=== PATIENT | male | born 1980 | race Caucasian/White ===

== ENCOUNTER 2020-02-20 17:23 | Inpatient (IN) | payer BC ==
[~2020-02-20] VITALS: Ht 172.7 cm; Wt 100.4 kg
[2020-02-20] MEDS: SODIUM ZIRCONIUM CYCL 10 GM PAK PO SCH ×3 (06:00→22:00)
[2020-02-20] MEDS ORDERED: MIDAZOLAM DRIP 50 mg/50mL 50 ML IV ONE (17:36)
[2020-02-20] MEDS ORDERED: ETOMIDATE (2MG/ML) 20ML VIAL IV ONE ×3 (17:36→17:45)
[2020-02-20] MEDS ORDERED: SUCCINYLCHOLINE CHLORIDE 20 MG/ML 10ML VIAL IV ONE ×3 (17:37→17:45)
[2020-02-20] MEDS ORDERED: MIDAZOLAM DRIP 50 mg/50mL 50 ML IV SCH ×2 (17:39)
[2020-02-20] MEDS ORDERED: PROPOFOL 100 ML IV ONE (17:44)
[2020-02-20 17:48] LABS: Hematocrit 50.8 % (41.0-53.0); Hemoglobin 17.4 g/dL (13.5-17.5); Mean Corpuscular Hemoglobin 31.4 pg (28.0-32.0); Mean Corpuscular Hgb Conc. 34.3 g/dL (32.0-36.0); Mean Corpuscular Volume 91.5 fL (80.0-100.0); Platelet Count (auto) 338 10^3/uL (140-450); Red Blood Cells 5.56 10^6/uL (4.5-5.90); Red Cell Distribution Width 13.8 % (11.8-14.3); White Blood Cell 20.3 10^3/uL (4.4-10.8)
[2020-02-20] MEDS: PROPOFOL 100 ML IV SCH (17:50)
[2020-02-20] MEDS ORDERED: PROPOFOL 100 ML IV SCH (17:50)
[2020-02-20 17:55] LABS: Basophils % (manual) 0 (0.0-2.0); Blast Cells 0; Eosinophils % (manual) 0 (0-7); Metamyelocytes % 0; Myelocytes % 0; Promyelocytes % 0; Reactive Lymphocytes 0
[2020-02-20] MEDS ORDERED: DEXTROSE 50% SYRINGE 50 ML IV ONE (17:56)
[2020-02-20] MEDS ORDERED: NOREPINEPHRINE 8 MG/250ML KIT 250 ML IV ONE (17:57)
[2020-02-20] MEDS: NOREPINEPHRINE 8 MG/250ML KIT 250 ML IV SCH (18:00)
[2020-02-20] MEDS ORDERED: DEXTROSE (50%) 50ML SYRG IV ONE (18:00)
[2020-02-20] MEDS ORDERED: NOREPINEPHRINE 8 MG/250ML KIT 250 ML IV SCH (18:00)
[2020-02-20 18:06] LABS: Albumin 3.8 g/dL (3.4-5.0); Anion Gap 19 (5-15); BUN/Creatinine Ratio 9.2; Blood Alcohol < 3.0 mg/dL (0-5); Blood Urea Nitrogen 30 mg/dL (7-18); Calcium 7.4 mg/dL (8.5-10.1); Carbon Dioxide 17 mmol/L (21-32); Chloride 98 mmol/L (98-107); GFR African American 27 mL/min; GFR Non-African American 23 mL/min; Glucose 65 mg/dL (74-106); Sodium 134 mmol/L (136-145)
[2020-02-20 18:08] LABS: Acetaminophen < 2.0 ug/mL (10-30); Salicylate < 1.7 mg/dL (2.8-20.0)
[2020-02-20 18:09] LABS: Alanine Aminotransferase 138 U/L (16-61); Alkaline Phosphatase 88 U/L (45-117); Aspartate Aminotransferase 581 U/L (15-37); Bilirubin, Total 0.5 mg/dL (0.2-1.0); Total Protein 7.9 g/dL (6.4-8.2)
[2020-02-20 18:10] LABS: Band Neutrophils % (manual) 3; Lymphocytes % (manual) 3 (10.0-50.0); Monocytes % (manual) 6 (0-12)
[2020-02-20 18:12] LABS: Potassium 6.9 mmol/L (3.5-5.1)
[2020-02-20] MEDS ORDERED: CALCIUM GLUC 4.65meq/50ml D5AE 50 ML IV ONE (18:15)
[2020-02-20] MEDS ORDERED: SODIUM BICARBONATE 8.4 % INJ 50ML VIAL IV ONE ×2 (18:15→19:45)
[2020-02-20 19:23] LABS: Alcohol, Urine < 3.0 mg/dL (0-5); Amphetamine Screen, Urine POSITIVE (NEGATIVE); Barbiturate Scree,Urine NEGATIVE (NEGATIVE); Benzodiazephine Screen, Urine NEGATIVE (NEGATIVE); Cannabinoid Screen, Urine POSITIVE (NEGATIVE); Cocaine Screen, Urine NEGATIVE (NEGATIVE); Opiate Scree,Urine NEGATIVE (NEGATIVE); Phencyclidine Screen, Urine NEGATIVE (NEGATIVE)
[2020-02-20 19:25] LABS: Urine Bacteria NONE SEEN /hpf (None Seen); Urine Blood 3+ /uL (Negative); Urine Hyaline Cast MOD /lpf (0 - 2); Urine Mucus FEW (None Seen); Urine Specific Gravity 1.019 (1.001-1.035); Urine WBC 5 /hpf (0 - 3)
[2020-02-20] MEDS ORDERED: ACETAMINOPHEN 500 MG TAB PO PRN (19:45)
[2020-02-20] MEDS ORDERED: ALBUTEROL SULF 2.5 MG/0.5ML(0.5%) NEB SOLN NEB ONE ×2 (19:45→21:15)
[2020-02-20 20:24] LABS: CRP High Sensitivity 3.47 mg/dL (< 0.3)
[2020-02-20] MEDS ORDERED: acetaZOLAMIDE SODIUM 500 MG VL IV ONE (20:30)
[2020-02-20] MEDS ORDERED: FUROSEMIDE 40 MG/4 ML VIAL IV ONE (20:30)
[2020-02-20] MEDS ORDERED: CALCIUM CHL 100MG/ML 500 MG in D5W 5% 100 ML IV ONE (20:30)
[2020-02-20] MEDS ORDERED: SODIUM ZIRCONIUM CYCL 10 GM PAK PO ONE (20:30)
[2020-02-20] MEDS ORDERED: MORPHINE SULF INJ 2 MG/ML SYRINGE 1ML IV PRN (20:45)
[2020-02-20] MEDS ORDERED: LORazepam 0.5 MG TAB PO PRN (20:45)
[2020-02-20] MEDS ORDERED: VANCOMYCIN 1GM/250ML 250 ML IV ONE (20:45)
[2020-02-20] MEDS ORDERED: NITROGLYCERIN 0.4 MG SL TAB SL PRN (20:45)
[2020-02-20] MEDS ORDERED: HYDROCORTISONE SOD SUCC 100 MG/2ML INJ VIAL IV ONE (20:45)
[2020-02-20] MEDS ORDERED: HYDROCORTISONE SOD SUCC 100 MG/2ML INJ VIAL ONE (20:54)
[2020-02-20] MEDS ORDERED: DEXTROSE (50%) 50ML SYRG IV PRN (21:15)
[2020-02-20] MEDS ORDERED: IPRATROPIUM BROM 0.5 MG/2.5ML INH SOL NEB ONE (21:15)
[2020-02-20 21:30] VITALS: BP 101/63
[2020-02-20] MEDS ORDERED: PIPERACILLIN-TAZOB 2.25GM 50 ML IV ONE (22:00)
[2020-02-20] MEDS: SODIUM BICARBONATE 50ML VIAL 150 ML in D5W 5% 1,000 ML IV SCH (22:06)
[2020-02-20] MEDS: MIDAZOLAM DRIP 50 mg/50mL 50 ML IV SCH (22:13)
[2020-02-20] MEDS ORDERED: acetaZOLAMIDE 250 MG TAB PO ONE (22:30)
[2020-02-20 23:15] VITALS: BP 114/77
[2020-02-20] MEDS: fentaNYL Drip 2500mCg/250mlNS 250 ML IV SCH (23:15)
--- NOTE | 2020-02-20 23:15 | NUR ---
Admit to ICU from ER on vent MIKAYLA BORJA admitted to ICU via gurney on quality assurance monitor body, intubated and being bagged by Respiratory Therapist. Patient transfered to bed, connected to mechanical ventilator by therapist. Patient connected to ICU monitoring, weighed by sheng, connected to ventilator. Skin assessment done at this time. Right antecubital, right forearm, and left antecubital IV's - clean/dry/intact. Nayak hung to gravity. Repositioned for comfort. Sedation: Versed - 8mg/hr Vasopressor: Levophed - 24mcg/min Bed in lowest position, side rails up x2. Will continue to monitor. Addendum: 02/21/20 at 728 by JOSELIN CADENA RN RN SKIN ASSESSED - PICTURES TAKEN Addendum: 02/21/20 at 728 by JOSELIN CADENA RN RN PM CARE PERFORMED WITH CHG WIPES.
[2020-02-20 23:25] LABS: Albumin 3.2 g/dL (3.4-5.0); BUN/Creatinine Ratio 9.7; Calcium 7.1 mg/dL (8.5-10.1)
[2020-02-20 23:28] LABS: Bilirubin, Total 0.5 mg/dL (0.2-1.0); Total Protein 6.8 g/dL (6.4-8.2)
[2020-02-20 23:30] VITALS: BP 112/68
[2020-02-20 23:31] LABS: Potassium 5.7 mmol/L (3.5-5.1)
[2020-02-20 23:45] VITALS: BP 111/76
[2020-02-21] VITALS (102 sets, daily range): BP systolic 114–149; BP diastolic 74–100
[2020-02-21] MEDS ORDERED: InsuLIN REG 1unit/0.01ml Soln (100units/ml) IV ONE
[2020-02-21] MEDS ORDERED: DEXTROSE (50%) 50ML SYRG IV ONE
[2020-02-21] MEDS ORDERED: SODIUM ZIRCONIUM CYCL 10 GM PAK PO ONE
[2020-02-21] MEDS ORDERED: CALCIUM GLUC 4.65meq/50ml D5AE 50 ML IV ONE
[2020-02-21] MEDS ORDERED: SODIUM ZIRCONIUM CYCL 10 GM PAK ONE (00:09)
[2020-02-21] MEDS: MIDAZOLAM DRIP 50 mg/50mL 50 ML IV SCH ×3 (01:10→22:55)
[2020-02-21] MEDS: InsuLIN REG 1unit/0.01ml Soln (100units/ml) SC SCH ×4 (01:16→19:00)
[2020-02-21] MEDS ORDERED: IPRATROPIUM BROM 0.5 MG/2.5ML INH SOL NEB SCH (02:00)
[2020-02-21 04:15] LABS: Basophils # (auto) 0 10 ^3/uL (0-0.2); Basophils % (auto) 0.1 % (0.0-2.0); Eosinophils # (auto) 0 10 ^3/uL (0-0.8); Hematocrit 49.9 % (41.0-53.0); Hemoglobin 17.3 g/dL (13.5-17.5); Lymphocytes # (auto) 0.7 10 ^3/uL (0.4-5.4); Lymphocytes % (auto) 3.6 % (10.0-50.0); Mean Corpuscular Hemoglobin 31.8 pg (28.0-32.0); Mean Corpuscular Hgb Conc. 34.7 g/dL (32.0-36.0); Mean Corpuscular Volume 91.8 fL (80.0-100.0); Monocytes # (auto) 1.9 10 ^3/uL (0-1.3); Monocytes % (auto) 9.3 % (0.0-12.0); Neutrophils # (auto) 17.7 10 ^3/uL (1.6-8.6); Platelet Count (auto) 322 10^3/uL (140-450); Red Blood Cells 5.44 10^6/uL (4.5-5.90); Red Cell Distribution Width 13.8 % (11.8-14.3); White Blood Cell 20.4 10^3/uL (4.4-10.8)
[2020-02-21 04:30] LABS: Potassium 4.6 mmol/L (3.5-5.1)
[2020-02-21 04:47] LABS: BUN/Creatinine Ratio 10.8; Bilirubin, Total 0.5 mg/dL (0.2-1.0); Calcium 7.3 mg/dL (8.5-10.1); Total Protein 6.8 g/dL (6.4-8.2)
[2020-02-21] MEDS: HYDROCORTISONE SOD SUCC 100 MG/2ML INJ VIAL IV SCH ×2 (05:26→09:30)
[2020-02-21] MEDS: SODIUM ZIRCONIUM CYCL 10 GM PAK PO SCH ×3 (06:18→21:38)
[2020-02-21] MEDS: SODIUM BICARBONATE 50ML VIAL 150 ML in D5W 5% 1,000 ML IV SCH (06:18)
[2020-02-21] MEDS: ACCU-CHEK COMFORT CURVE STRIP VI SCH ×4 (06:18→19:00)
--- NOTE | 2020-02-21 06:30 | NUR ---
SPOKE WITH ZACKERY ( MOTHER ) UPDATED HER ON PATIENT STATUS.
--- NOTE | 2020-02-21 07:28 | NUR ---
END OF SHIFT REPORT GIVEN TO DAY SHIFT RN. CARE ENDORSED.
[2020-02-21] MEDS: DOCUSATE SOD 100 MG CAP PO SCH (08:14)
[2020-02-21] MEDS: PANTOPRAZOLE 40 MG/10 ML VIAL INJ IV SCH (09:30)
[2020-02-21] MEDS: ASCORBIC ACID 1,000 MG TAB PO SCH (09:30)
[2020-02-21] MEDS: ASPirin 81 mg TAB PO SCH (09:30)
--- NOTE | 2020-02-21 09:40 | NUR ---
OPEN: AM ASSESSMENT/ STATUS RECEIVED REPORT FROM NIGHT RN. ASSUMED CARE OF ICU PATIENT, FULL CODE STATUS. PATIENT R/O COVID-19 ISOLATION AT THIS TIME. PATIENT IN ROOM 105 OF THE ICU. SEE NURSING TECHNICIAN, IV FLOW SHEET AND V.S FLOW SHEET FOR FURTHER PATIENT INFORMATION SEE CHART FOR ORDERS GIVEN THROUGHOUT THE DAY. WILL CONTINUE TO MONITOR. CLUSTER CARE PREFORMED WHILE R/O PATIENT FROM COVID-19. CONTINUE CARE.
[2020-02-21] MEDS ORDERED: ENOXAPARIN SOD 40 MG/0.4 ML SYRINGE SC SCH (10:00)
[2020-02-21] MEDS ORDERED: CHOLECALCIFEROL (VITD3) 1,000IU=25mCg TAB PO SCH (10:00)
[2020-02-21] MEDS ORDERED: ZINC SULFATE 220mg CAP or TAB PO SCH (10:00)
[2020-02-21] MEDS ORDERED: AZITHROMYCIN 500MG/D5WorNS 250ml IV SCH (10:00)
--- NOTE | 2020-02-21 11:05 | NUR ---
DR. HUERTAS AT BEDSIDE MD UPDATED ON PT'S STATUS, LABS, HEMODYNAMICS AND CURRENT GTT'S. MD DECREASED PEEP TO + 5. OTHER ORDERS GIVEN AND TO BE CARRIED OUT. SEE CHART. CONTINUE CARE.
[2020-02-21] MEDS ORDERED: VANCOMYCIN PER PHARMACY 0 MG IV SCH (11:15)
[2020-02-21] MEDS ORDERED: SOD CHL 0.45% 1,000 ML IV SCH (11:15)
[2020-02-21] MEDS ORDERED: SODIUM CHLORIDE 0.9% 1,000 ML IV SCH (11:30)
--- NOTE | 2020-02-21 11:30 | NUR ---
DR. GORDON AT BEDSIDE: CONSULT ORDERS GIVEN AND TO BE CARRIED OUT. SEE MD NOTES. CONTINUE CARE.
--- NOTE | 2020-02-21 12:00 | NUR ---
DR. Lisseth BANUELOS AT BEDSIDE: ORDERS MD UPDATED ON PT'S CURRENT STATUS, LABS, HEMODYNAMICS AND CURRENT GTT'S. ORDERS GIVEN AND TO BE CARRIED OUT. CONTINUE CARE.
[2020-02-21 13:34] LABS: Albumin 2.7 g/dL (3.4-5.0); Bilirubin, Direct 0.2 mg/dL (0-0.2)
[2020-02-21] MEDS: SODIUM CHLORIDE 0.9% 1,000 ML IV SCH ×2 (13:45→21:37)
[2020-02-21 14:01] LABS: Bilirubin, Total 0.5 mg/dL (0.2-1.0); Total Protein 6.6 g/dL (6.4-8.2)
[2020-02-21] MEDS: PIPERACILLIN-TAZOB 2.25GM 50 ML IV SCH ×2 (14:31→21:38)
[2020-02-21] MEDS: NOREPINEPHRINE 8 MG/250ML KIT 250 ML IV SCH (16:27)
[2020-02-21] MEDS: PROPOFOL 100 ML IV SCH (16:28)
--- NOTE | 2020-02-21 16:30 | NUR ---
WOUND CARE NOTE: IN TO SEE PATIENT AT THIS TIME PER WOUND CARE CONSULT REQUEST. PATIENT WAS NOTED TO HAVE MULTIPLE SKIN INTEGRITY ISSUES NOTED UPON ADMIT, WOUND PHOTOS DONE AT THAT TIME FOR REFERENCE. PATIENT ADMITTED TO [facility] WITH DIAGNOSIS OF ACUTE HYPOXIC RESPIRATORY FAILURE. CURRENT LISA SCORE IS 12. PATIENT IS INTUBATED, SEDATED. SKIN/WOUND CARE PLAN PLACED. SPECIALTY AIR BED ORDERED AT THIS TIME. PATIENT TO BE PLACED, PENDING DELIVERY BY GENARO PACHECO. PATIENT IS NOTED TO HAVE MULTIPLE ECCHYMOTIC AREAS TO A VARIETY OF AREAS. PER BEDSIDE NURSE AND MOTHER AT BEDSIDE, PATIENT WAS FOUND DOWN ON FLOOR FOR UNKNOWN PERIOD OF TIME. PATIENT NOTED TO HAVE WHAT APPEARS TO BE EARLY DTI'S TO RIGHT TEMPORAL HEAD, RIGHT SHOULDER, RIGHT CHEST, RIGHT FOREARM, R WRIST, R HIP, RIGHT LATERAL KNEE, LEFT MEDIAL THIGH, LEFT MEDIAL ANKLE, LEFT MEDIAL FOREFOOT, LEFT MEDIAL FOOT, ECCHYMOSIS TO RIGHT DORSAL FOOT, ECCHYMOSIS AND EDEMA TO RIGHT HAND. ALL WOUNDS REPHOTOGRAPHED AT THIS TIME FOR REFERENCE. ALL ECCHYMOTIC AREAS MEASURED FOR REFERENCE. THERE IS ONE VERY SMALL 0.5 X 0.5 CM OPEN BLISTER OVER DTI TO THE LEFT MEDIAL THIGH. OPTIFOAM GENTLE DRESSING APPLIED TO COVER AND PROTECT. PATIENT REPOSITIONED ONTO LEFT SIDE, REDISTRIBUTING PRESSURE POINTS USING PILLOWS/WEDGES. RECOMMEND: SPECIALTY AIR BED, FREQUENT TURN SCHEDULE Q 2 HOURS, PRN CONDITION PERMITS, WITH PRESSURE REDISTRIBUTION USING PILLOWS/WEDGES, BID/PRN APPLICATION WITH MOISTURE BARRIER CREAM TO OPTIFOAM GENTLE SACRAL DRESSING PREVENTATIVE, NO MASSAGE OF PURPLE/DARK RED SKIN AREAS, SKIN/WOUND CARE PLAN, DIETARY CONSULT, CONTINUED MONITORING BY WOUND CARE TEAM. Addendum: 02/21/20 at 1846 by Heather Yu RN Amended: Links added.
--- NOTE | 2020-02-21 16:45 | NUR ---
FAMILY AT BEDSIDE MOTHER AT BEDSIDE, UPDATED ON PT'S CURRENT STATUS, WOUND CARE AT BEDSIDE WITH MY HELP, PICTURES BEING TAKEN. CONTINUE CARE.
--- NOTE | 2020-02-21 18:12 | NUR ---
RT NOTE RECEIVED PT INTUBATED AND ON VENT ADQ-0236 ON STATED SETTINGS ON HEATED WIRE CIRCUIT. VENT IS PLUGGED TO RED OUTLET. ALARMS ARE ON AND AUDIBLE AT NURSES STATION. AMBU BAG AT BEDSIDE AND CONNECTED TO O2 SOURCE. 7.5 ETT IS SECURED WITH ANCHORFAST AT 24 CM AT THE ORAL RIGHT. WATER LEVEL IN ARMIDA IS ADEQUATE. BILATERAL BS ARE CTA. PT WAS SUCTIONED FOR SMALL SCANT CLEAR RETURN FROM ETT AND SMALL WHITE RETURN ORALLY. CONT ORDERED. etCO2 38, PT TEMP 99.3, CIRCUIT TEMP 35.1, POX 100% Addendum: 02/21/20 at 1850 by Gisselle Bonilla RT Amended: Links added.
--- NOTE | 2020-02-21 18:30 | NUR ---
RT NOTE PT WAS TRANSFERRED FROM ICU 105 TO ICU 107 WITHOUT INCIDENT WITH RUDY HELTON AND RUDY REES. PT IS PLACED BACK ON VENT WITH PREVIOUS SETTINGS. CONT ORDERED Addendum: 02/21/20 at 1850 by Gisselle Bonilla RT Amended: Links added.
--- NOTE | 2020-02-21 19:10 | NUR ---
OPENING NOTE RECEIVED REPORT FROM DAY SHIFT RN. PATIENT INTUBATED AND SEDATED ON FENT AND VERSED TOLERATING VENTILATOR. STATING >955 ON BEDSIDE MONITOR. SR-ST 95-105 WITH BP OF 141/100 ON NO PRESSURE SUPPORT. TEMP 99.5 RECTAL PROBE, FAN IN ROOM FOR COOLING MEASURES. RIGHT NGT PATENT AND CLAMPED. RIGHT ARM EDEMA +3 NON PITTING, ELEVATED. MULTIPLE SKIN ISSUES. FOR MORE INFORMATION SEE INTEVENTIONS. FOR GTTS AND THEIR TITRATIONS SEE IV SPREAD SHEET. ALL MARY PROMINENCES OFFLOADED WITH PILLOWS. BED LOCKED AND IN LOWEST POSITION. UNIVERSAL PRECAUTIONS, NEGATIVE FOR COVID-19.
[2020-02-21] MEDS: fentaNYL Drip 2500mCg/250mlNS 250 ML IV SCH (19:45)
--- NOTE | 2020-02-21 20:41 | NUR ---
RT NOTE ROUTINE VENT CHECK DONE. PT INTUBATED AND ON VENT ADQ-0236 ON STATED SETTINGS ON HEATED WIRE CIRCUIT. VENT IS PLUGGED TO RED OUTLET. ALARMS ARE ON AND AUDIBLE AT NURSES STATION. AMBU BAG AT BEDSIDE AND CONNECTED TO O2 SOURCE. 7.5 ETT IS SECURED WITH ANCHORFAST AT 24 CM AT THE ORAL RIGHT. WATER LEVEL IN ARMIDA IS ADEQUATE. BILATERAL BS ARE CTA. PT WAS SUCTIONED FOR SMALL SCANT CLEAR RETURN FROM ETT AND SMALL WHITE RETURN ORALLY. CONT ORDERED.etCO2 36, PT TEMP 99.7, CIRCUIT TEMP 35.0, POX 99% Addendum: 02/21/20 at 2158 by Gisselle Bonilla RT Amended: Links added.
--- NOTE | 2020-02-21 22:30 | NUR ---
RT NOTE ROUTINE VENT CHECK DONE. PT INTUBATED AND ON VENT ADQ-0236 ON STATED SETTINGS ON HEATED WIRE CIRCUIT. VENT IS PLUGGED TO RED OUTLET. ALARMS ARE ON AND AUDIBLE AT NURSES STATION. AMBU BAG AT BEDSIDE AND CONNECTED TO O2 SOURCE. 7.5 ETT IS SECURED WITH ANCHORFAST AT 24 CM AT THE ORAL RIGHT. WATER LEVEL IN ARMIDA IS ADEQUATE. CONT ORDERED.etCO2 37, PT TEMP 99.5, CIRCUIT TEMP 35.0, POX 100% Addendum: 02/21/20 at 2256 by Gisselle Bonilla RT Amended: Links added.
[2020-02-21] MEDS: LINEZOLID 600MG/300ML 300 ML IV SCH (22:40)
[2020-02-22] VITALS (100 sets, daily range): BP systolic 108–159; BP diastolic 55–98
[2020-02-22] MEDS: ACCU-CHEK COMFORT CURVE STRIP VI SCH ×4 (00:08→17:21)
--- NOTE | 2020-02-22 00:19 | NUR ---
RT NOTE ROUTINE VENT CHECK DONE. PT INTUBATED AND ON VENT ADQ-0236 ON STATED SETTINGS ON HEATED WIRE CIRCUIT. VENT IS PLUGGED TO RED OUTLET. ALARMS ARE ON AND AUDIBLE AT NURSES STATION. AMBU BAG AT BEDSIDE AND CONNECTED TO O2 SOURCE. 7.5 ETT IS SECURED WITH ANCHORFAST AT 24 CM AT THE ORAL RIGHT. WATER LEVEL IN ARMIDA IS ADEQUATE. CONT ORDERED.etCO2 36, PT TEMP 99.7, CIRCUIT TEMP 34.9, POX 99% Addendum: 02/22/20 at 0138 by Gisselle Bonilla RT Amended: Links added.
--- NOTE | 2020-02-22 02:20 | NUR ---
RT NOTE ROUTINE VENT CHECK DONE. PT INTUBATED AND ON VENT ADQ-0236 ON STATED SETTINGS ON HEATED WIRE CIRCUIT. VENT IS PLUGGED TO RED OUTLET. ALARMS ARE ON AND AUDIBLE AT NURSES STATION. AMBU BAG AT BEDSIDE AND CONNECTED TO O2 SOURCE. 7.5 ETT IS SECURED WITH ANCHORFAST AT 24 CM AT THE ORAL RIGHT. WATER LEVEL IN ARMIDA IS ADEQUATE. CONT ORDERED.etCO2 35, PT TEMP 99.5, CIRCUIT TEMP 35.2, POX 99% Addendum: 02/22/20 at 0244 by Gisselle Bonilla RT Amended: Links added.
--- NOTE | 2020-02-22 03:00 | NUR ---
PATIENT PLACED ON SPECIALTY BED PLACED PATIENT ON [facility] SPECIALTY AIR MATTRESS BED. PATIENT TOLERATED WELL. NO SIGNS OF DISTRESS
[2020-02-22 03:56] LABS: Basophils # (auto) 0 10 ^3/uL (0-0.2); Basophils % (auto) 0.2 % (0.0-2.0); Eosinophils # (auto) 0 10 ^3/uL (0-0.8); Eosinophils % (auto) 0.3 % (0.0-7.0); Hematocrit 43.9 % (41.0-53.0); Hemoglobin 15.2 g/dL (13.5-17.5); Lymphocytes # (auto) 1.7 10 ^3/uL (0.4-5.4); Lymphocytes % (auto) 11.4 % (10.0-50.0); Mean Corpuscular Hemoglobin 31.8 pg (28.0-32.0); Mean Corpuscular Hgb Conc. 34.6 g/dL (32.0-36.0); Mean Corpuscular Volume 91.9 fL (80.0-100.0); Monocytes # (auto) 1.6 10 ^3/uL (0-1.3); Monocytes % (auto) 10.3 % (0.0-12.0); Neutrophils # (auto) 11.8 10 ^3/uL (1.6-8.6); Neutrophils % (auto) 77.8 % (37.0-80.0); Nucleated Red Blood Cells % 0.1 %; Platelet Count (auto) 216 10^3/uL (140-450); Red Blood Cells 4.78 10^6/uL (4.5-5.90); Red Cell Distribution Width 14.1 % (11.8-14.3); White Blood Cell 15.2 10^3/uL (4.4-10.8)
--- NOTE | 2020-02-22 04:00 | NUR ---
COMPLETE BED BATH GIVEN SKIN REASSESSED AND NO NEW BREAK DOWN NOTED. PATIENT TOLERATED WELL. SOAP AND WATER USED TO CLEAN PATIENT
--- NOTE | 2020-02-22 04:06 | NUR ---
RT NOTE ROUTINE VENT CHECK DONE. PT INTUBATED AND ON VENT ADQ-0236 ON STATED SETTINGS ON HEATED WIRE CIRCUIT. VENT IS PLUGGED TO RED OUTLET. ALARMS ARE ON AND AUDIBLE AT NURSES STATION. AMBU BAG AT BEDSIDE AND CONNECTED TO O2 SOURCE. 7.5 ETT IS SECURED WITH ANCHORFAST AT 24 CM AT THE ORAL LEFT. WATER LEVEL IN ARMIDA IS ADEQUATE. CONT ORDERED.etCO2 33, PT TEMP 99.1, CIRCUIT TEMP 34.8, POX 99% Addendum: 02/22/20 at 0452 by Gisselle Bonilla RT Amended: Links added.
[2020-02-22 04:18] LABS: Albumin 2.2 g/dL (3.4-5.0); Calcium 6.9 mg/dL (8.5-10.1); Potassium 4.5 mmol/L (3.5-5.1)
[2020-02-22 04:21] LABS: Bilirubin, Total 0.5 mg/dL (0.2-1.0); Total Protein 5.6 g/dL (6.4-8.2)
[2020-02-22] MEDS: SODIUM CHLORIDE 0.9% 1,000 ML IV SCH ×2 (05:35→23:15)
[2020-02-22] MEDS: PIPERACILLIN-TAZOB 2.25GM 50 ML IV SCH ×3 (06:00→22:09)
[2020-02-22] MEDS: InsuLIN REG 1unit/0.01ml Soln (100units/ml) SC SCH ×4 (06:00→17:21)
[2020-02-22] MEDS: MIDAZOLAM DRIP 50 mg/50mL 50 ML IV SCH ×3 (06:45→15:28)
--- NOTE | 2020-02-22 07:57 | NUR ---
DR GREEN AT BEDSIDE TO ASSESS PATIENT AND DISCUSS PLAN OF CARE.
--- NOTE | 2020-02-22 08:50 | NUR ---
IV insertion IV access obtained, via clean sterile technique by inserting 20gauge catheter at left hand after 2 attempts. IV secured properly. No trauma to site. Patient tolerated well. IV removal IV DC'd to right AC and FA with clean sterile technique, catheter fully intact. Pressure dressing applied to site. Patient tolerated well.
--- NOTE | 2020-02-22 08:50 | NUR ---
PATIENT TRANSPORTED TO RADIOLOGY VIA BED CONNECTED TO PORTABLE MONITOR AND VENTILATOR. RESPIRATORY THERAPIST AND RADIOLOGY NURSE PRESENT FOR TRANSPORT. VITAL SIGNS STABLE. WILL CONTINUE TO MONITOR.
--- NOTE | 2020-02-22 08:50 | NUR ---
RT Transport Note: Patient transported to HEAD CT with RN DAPHNE CHEEK. Patient transported to and from procedure on ventilator with previous ordered settings. Patient on threat monitoring analyst with alarms set and audible, ambu-bag/mask connected to 02 tank. Patient returned to room with no adverse reaction noted. Transport completed without incident.
[2020-02-22 09:02] LABS: Hepatitis B Surface Antibody Negative
--- NOTE | 2020-02-22 09:15 | NUR ---
PATIENT BACK FROM CT VIA BED CONNECTED TO BEDSIDE MONITOR AND VENTILATOR. VITAL SIGNS STABLE. WILL CONTINUE TO MONITOR.
[2020-02-22] MEDS: PANTOPRAZOLE 40 MG/10 ML VIAL INJ IV SCH (09:29)
[2020-02-22] MEDS: ASPirin 81 mg TAB PO SCH (09:29)
[2020-02-22] MEDS: ASCORBIC ACID 1,000 MG TAB PO SCH (09:30)
[2020-02-22] MEDS: LINEZOLID 600MG/300ML 300 ML IV SCH ×2 (09:30→22:09)
[2020-02-22] MEDS: DOCUSATE SOD 100 MG CAP PO SCH (09:30)
[2020-02-22 09:41] LABS: Hepatitis A Total Antibody Negative
[2020-02-22 09:56] LABS: Hepatitis A Ab IgM Negative; Hepatitis B Core Total AB Negative
[2020-02-22 09:57] LABS: Hepatitis B Core IgM Negative; Hepatitis B Surface Antigen Negative (Negative); Hepatitis C Antibody Negative (Negative)
[2020-02-22] MEDS ORDERED: ENOXAPARIN SOD 30 MG/0.3 ML SYRINGE SC SCH (10:00)
--- NOTE | 2020-02-22 12:04 | NUR ---
Midline Placement: Patient educated on need for midline placement. All risks and benefits explained and all questions and concerns addresses prior to procedure. 18g/10cm midline inserted via LEFT CEPHALIC vein using Ultrasound. Sterile technique utilized. Blood return obtained from lumen and flushed easily with NS using proper technique. Midline secured with saline lock; biodisc and occlusive dressing applied. Primary RN notified. Midline lot # [id number].
--- NOTE | 2020-02-22 12:20 | NUR ---
Nutrition Assessment Notes Please refer to link for full assessment notes. Est energy needs: 4004-1053 kcals (17-20 kcal/kgBW) Est protein needs: 60-75 gms/day (0.6-0.75 gm/kgBW) d/t elev RFTs, low GFR Will continue to monitor and reassess prn. Addendum: 02/22/20 at [address] Amended: Links added.
[2020-02-22] MEDS ORDERED: BUMETANIDE 2.5mg/10ml (0.25 mg/ml) INJ IV ONE (13:00)
[2020-02-22] MEDS ORDERED: BUMETANIDE INJECTION 20 ML ONE (13:03)
[2020-02-22] MEDS: fentaNYL Drip 2500mCg/250mlNS 250 ML IV SCH (13:04)
--- NOTE | 2020-02-22 13:28 | NUR ---
DR GORDON AT BEDSIDE TO ASSESS PATIENT AND DISCUSS PLAN OF CARE. ALL ORDERS NOTED IN CHART.
[2020-02-22] MEDS ORDERED: SODIUM CHLORIDE 0.9% 1,000 ML IV SCH ×2 (14:00→17:45)
--- NOTE | 2020-02-22 15:21 | NUR ---
DEWEY ANDINO EXECUTIVE RECRUITER AT BEDSIDE TO ASSESS PATIENT AND DISCUSS PLAN OF CARE. MADE AWARE OF TROPONIN LEVEL WELL ECHO READING. WILL REVIEW AND DISCUSS WITH DR GALLO ON PLAN OF CARE.
[2020-02-22 17:28] LABS: Magnesium 2.4 mg/dL (1.6-2.6)
--- NOTE | 2020-02-22 17:30 | NUR ---
SPOKE TO DEWEY CH TO CLARIFY ORDERS. PER ELECTRICAL PROSPECTING OBSERVER WANTS PATIENT ON HEPARIN DRIP PER [facility] PROTOCOL. PER DEWEY WILL CALL TOMORROW PRIOR TO DERIC TO STOP FOR PROCEDURE, ALSO MAY REPLACE ORDER FOR FLUIDS PREVIOUSLY ORDERED.
--- NOTE | 2020-02-22 17:40 | NUR ---
TELEPHONE CONSENT OBTAINED FROM MOTHER ZACKERY BORJA FOR DERIC WITH DOUBLE NURSE CONSENT.
[2020-02-22] MEDS: FUROSEMIDE 100 MG/10ML VIAL IV SCH (17:46)
[2020-02-22] MEDS ORDERED: HEPARIN SODIUM (PORCINE) 5000 UNITS/ML 1ML VIAL IV ONE (17:59)
[2020-02-22] MEDS: PROPOFOL 100 ML IV SCH (18:03)
[2020-02-22 19:01] LABS: INR 0.99 (0.9-1.15); Partial Thromboplastin Time 26.2 sec (23.64-32.05)
[2020-02-22] MEDS: HEPARIN DRIP/D5W 100UNITS/ML 250 ML IV SCH (21:19)
--- NOTE | 2020-02-22 21:30 | NUR ---
HEPARIN GTT STARTED
[2020-02-22] MEDS: NOREPINEPHRINE 8 MG/250ML KIT 250 ML IV SCH (22:08)
[2020-02-22] MEDS: SACUBITRIL-VALSARTAN 24mg/26mg TAB PO SCH (22:09)
[2020-02-22] MEDS: CARVEDILOL 12.5 MG TAB PO SCH (22:09)
--- NOTE | 2020-02-22 23:35 | NUR ---
DORYS YATES UPDATED MD OVER PHONE. NO NEW ORDERS RECEIVED.
[2020-02-23] VITALS (106 sets, daily range): BP systolic 106–166; BP diastolic 58–128
[2020-02-23] MEDS: ACCU-CHEK COMFORT CURVE STRIP VI SCH ×5 (00:29→23:04)
[2020-02-23 04:38] LABS: Basophils # (auto) 0 10 ^3/uL (0-0.2); Basophils % (auto) 0.2 % (0.0-2.0); Eosinophils # (auto) 0 10 ^3/uL (0-0.8); Eosinophils % (auto) 0.4 % (0.0-7.0); Hematocrit 39.1 % (41.0-53.0); Lymphocytes # (auto) 1.1 10 ^3/uL (0.4-5.4); Lymphocytes % (auto) 9.7 % (10.0-50.0); Mean Corpuscular Hemoglobin 31.6 pg (28.0-32.0); Mean Corpuscular Hgb Conc. 33.2 g/dL (32.0-36.0); Mean Corpuscular Volume 95.1 fL (80.0-100.0); Monocytes # (auto) 0.9 10 ^3/uL (0-1.3); Monocytes % (auto) 7.9 % (0.0-12.0); Neutrophils % (auto) 81.8 % (37.0-80.0); Nucleated Red Blood Cells % 0.1 %; Platelet Count (auto) 167 10^3/uL (140-450); Red Blood Cells 4.11 10^6/uL (4.5-5.90); Red Cell Distribution Width 14.4 % (11.8-14.3)
--- NOTE | 2020-02-23 05:00 | NUR ---
PTT 30.8 INCREASED HEPARIN GTT PER PHARMACY PROTOCOL
[2020-02-23 05:06] LABS: BUN/Creatinine Ratio 10.7; Potassium 4.2 mmol/L (3.5-5.1)
[2020-02-23 05:07] LABS: Albumin 1.6 g/dL (3.4-5.0); Bilirubin, Total 0.5 mg/dL (0.2-1.0); Calcium 6.7 mg/dL (8.5-10.1); Total Protein 5.1 g/dL (6.4-8.2)
[2020-02-23] MEDS: InsuLIN REG 1unit/0.01ml Soln (100units/ml) SC SCH ×5 (06:00→23:04)
[2020-02-23] MEDS: PIPERACILLIN-TAZOB 2.25GM 50 ML IV SCH ×3 (06:04→21:00)
[2020-02-23] MEDS: FUROSEMIDE 100 MG/10ML VIAL IV SCH ×2 (06:05→18:24)
[2020-02-23] MEDS: SODIUM CHLORIDE 0.9% 1,000 ML IV SCH ×2 (06:52→19:15)
[2020-02-23] MEDS: MIDAZOLAM DRIP 50 mg/50mL 50 ML IV SCH ×3 (06:52→20:30)
[2020-02-23] MEDS ORDERED: SODIUM CHL 0.9% 1000 ML BAG XX ONE (07:00)
--- NOTE | 2020-02-23 07:45 | NUR ---
OPENING Report received from Erick GRANT. Care initiated and initial assessment complete.
[2020-02-23] MEDS: PANTOPRAZOLE 40 MG/10 ML VIAL INJ IV SCH (09:30)
[2020-02-23] MEDS: ASCORBIC ACID 1,000 MG TAB PO SCH (09:31)
[2020-02-23] MEDS: DOCUSATE SOD 100 MG CAP PO SCH (09:31)
[2020-02-23] MEDS: LINEZOLID 600MG/300ML 300 ML IV SCH ×2 (09:31→22:30)
[2020-02-23] MEDS: CARVEDILOL 12.5 MG TAB PO SCH ×2 (09:31→22:30)
[2020-02-23] MEDS: SACUBITRIL-VALSARTAN 24mg/26mg TAB PO SCH ×2 (09:32→22:30)
--- NOTE | 2020-02-23 12:03 | NUR ---
assessment Patient is a 39 year old male who is in ICU on a vent. Per patients mother Justine prior to admission patient lived on her property and was independent. Patients PCP is Dr Russo. Patient has no need for DME. Per Justine patient was not answering his phone or texts. Family went to check on him and patient was found laying and groaning and not able to answer family. Patients brother call 911 and patient was admitted to ICU. I informed Justine patients post discharge needs to be determined after extubation and prior to discharge. Justine verbalized understanding. Addendum: 02/23/20 at 1207 by Ruthann MICHELLE Amended: Links added.
[2020-02-23 12:10] LABS: INR 1.02 (0.9-1.15); Partial Thromboplastin Time 61.6 sec (23.64-32.05)
--- NOTE | 2020-02-23 12:32 | NUR ---
PTPTT RESULTS Heparin no change.
--- NOTE | 2020-02-23 13:15 | NUR ---
BEDSIDE Dr. Rodriguez bedside completing DERIC.
--- NOTE | 2020-02-23 14:07 | NUR ---
UPDATED FAMILY Updated on patient's status and condition. All questions and concerns addressed. verbalized understanding.
[2020-02-23] MEDS: HEPARIN DRIP/D5W 100UNITS/ML 250 ML IV SCH (14:54)
[2020-02-23] MEDS: fentaNYL Drip 2500mCg/250mlNS 250 ML IV SCH (14:55)
[2020-02-23 18:12] LABS: INR 0.99 (0.9-1.15); Partial Thromboplastin Time 47.6 sec (23.64-32.05)
--- NOTE | 2020-02-23 19:00 | NUR ---
PTT 47.6; Heparin drip adjusted by day shift RN: 1300 to 1500 units/hr per protocol.
--- NOTE | 2020-02-23 19:30 | NUR ---
Opening Shift Note: Patient is intubated/sedated. ET size 8.0/25 @ lip. Vent settings: AC rate 20, vT 500, FiO2 30%, and PEEP 5. Neuro: pupils bilateral 3mm in size/brisk/reactive; moves extremities intermittently slightly; no eye opening; hypoactive cough/gag. Cardiac: NSR 70s; SBP 120s/130s; all pulses palpable. No ET secretions/oral secretions are rust/bloody/thick. R. nare NGT clamped. Nayak inserted on 02/22/20 for strict I/O: oliguria, MDs aware. Skin: multiple DTIs related to rhabdo/increased down time after OD. IV's left hand 20 g inserted on 02/22/20 and LUE midline inserted on 02/22/20. Drips: Versed @ 15; Fentanyl @ 200; Heparin @ 1500 units/hr; NS @ 100 ml/hr. Will continue to round/reposition/perform oral care prn.
[2020-02-23 23:36] LABS: Protein, Urine 520.3 mg/dL (0.0-11.9)
[2020-02-24] VITALS (102 sets, daily range): BP systolic 109–144; BP diastolic 50–79
[2020-02-24] MEDS: MIDAZOLAM DRIP 50 mg/50mL 50 ML IV SCH ×3 (01:00→21:15)
[2020-02-24 01:18] LABS: INR 0.98 (0.9-1.15)
--- NOTE | 2020-02-24 01:26 | NUR ---
PTT 49.0. Increased heparin drip by 200 units (2 ml/hr) from 1500 to 1700 units/hr per protocol.
[2020-02-24] MEDS: fentaNYL Drip 2500mCg/250mlNS 250 ML IV SCH (03:30)
--- NOTE | 2020-02-24 04:00 | NUR ---
Patient bathe/linen change Patient given complete CHG bath. Skin integrity assessed for any changes. Linens and gown changed. Patient repositioned for comfort.
[2020-02-24 04:36] LABS: Basophils # (auto) 0 10 ^3/uL (0-0.2); Basophils % (auto) 0.2 % (0.0-2.0); Eosinophils # (auto) 0.1 10 ^3/uL (0-0.8); Eosinophils % (auto) 0.7 % (0.0-7.0); Hemoglobin 11.7 g/dL (13.5-17.5); Lymphocytes # (auto) 0.8 10 ^3/uL (0.4-5.4); Mean Corpuscular Hemoglobin 32.7 pg (28.0-32.0); Mean Corpuscular Hgb Conc. 35.5 g/dL (32.0-36.0); Monocytes # (auto) 0.6 10 ^3/uL (0-1.3); Monocytes % (auto) 7.8 % (0.0-12.0); Neutrophils # (auto) 6.8 10 ^3/uL (1.6-8.6); Neutrophils % (auto) 81.3 % (37.0-80.0); Nucleated Red Blood Cells % 0.1 %; Platelet Count (auto) 165 10^3/uL (140-450); Red Blood Cells 3.59 10^6/uL (4.5-5.90); White Blood Cell 8.3 10^3/uL (4.4-10.8)
[2020-02-24 04:59] LABS: Potassium 4.1 mmol/L (3.5-5.1)
[2020-02-24 05:06] LABS: Albumin 1.5 g/dL (3.4-5.0); BUN/Creatinine Ratio 10.8; Bilirubin, Total 0.4 mg/dL (0.2-1.0); Calcium 6.9 mg/dL (8.5-10.1); Total Protein 5.2 g/dL (6.4-8.2)
[2020-02-24] MEDS: SODIUM CHLORIDE 0.9% 1,000 ML IV SCH ×2 (05:15→14:52)
[2020-02-24] MEDS: ACCU-CHEK COMFORT CURVE STRIP VI SCH ×3 (06:00→18:01)
[2020-02-24] MEDS: PIPERACILLIN-TAZOB 2.25GM 50 ML IV SCH ×3 (06:00→21:14)
[2020-02-24] MEDS: InsuLIN REG 1unit/0.01ml Soln (100units/ml) SC SCH ×3 (06:00→18:00)
[2020-02-24] MEDS: FUROSEMIDE 100 MG/10ML VIAL IV SCH ×2 (06:00→18:01)
--- NOTE | 2020-02-24 06:00 | NUR ---
Low urine output: Patient only had 85 ml of pale yellow urine out of Nayak catheter. BUN 91 and creatinine is 8.41. Patient is pending dialysis mian catheter placement by Dr. Mcadams today.
[2020-02-24] MEDS: HEPARIN DRIP/D5W 100UNITS/ML 250 ML IV SCH (06:47)
--- NOTE | 2020-02-24 07:35 | NUR ---
OPENING Report received from Anabella GRANT. Care initiated and initial assessment complete.
[2020-02-24 08:32] LABS: INR 0.97 (0.9-1.15); Partial Thromboplastin Time 51.5 sec (23.64-32.05)
[2020-02-24] MEDS: PANTOPRAZOLE 40 MG/10 ML VIAL INJ IV SCH (09:31)
[2020-02-24] MEDS: LINEZOLID 600MG/300ML 300 ML IV SCH ×2 (09:32→22:00)
[2020-02-24] MEDS: DOCUSATE SOD 100 MG CAP PO SCH (09:32)
[2020-02-24] MEDS: CARVEDILOL 12.5 MG TAB PO SCH ×2 (09:32→22:00)
[2020-02-24] MEDS: SACUBITRIL-VALSARTAN 24mg/26mg TAB PO SCH ×2 (09:33→22:00)
[2020-02-24] MEDS: ASCORBIC ACID 1,000 MG TAB PO SCH (09:33)
--- NOTE | 2020-02-24 09:45 | NUR ---
BEDSIDE: DR LOS Craig bedside. No new orders received. Patient will get dialysis once Dr. Sinclair places Yousif.
--- NOTE | 2020-02-24 10:00 | NUR ---
BEDSIDE: DR CLEO Rodriguez bedside. No new orders received. MD would like to speak to patient prior to C. Extubate patient when possible and agreed upon with surgical services director.
--- NOTE | 2020-02-24 12:50 | NUR ---
BEDSIDE: DR KIYA Sinclair bedside. Will insert line later this afternoon.
--- NOTE | 2020-02-24 13:00 | NUR ---
HOLDING HEPARIN Yousif Catheter to be placed later this afternoon.
--- NOTE | 2020-02-24 13:50 | NUR ---
SPOKE TO FAMILY: MOTHER Spoke to patients motherJustine. Updated her on patients status. All questions and concerns addressed.
--- NOTE | 2020-02-24 14:40 | NUR ---
SPOKE TO MD: DR LOS Craig called in regards to Yousif Catheter status. Updated MD that the line has not been placed at this time. stated dialysis to be completed tomorrow 02/24.
--- NOTE | 2020-02-24 15:38 | NUR ---
Nutrition Followup Notes Pt wt is 96.4 kg Pt is sedated, intubated, NPO. Per RN, pt scheduled for a medical procedure, and will resume EN support after pt returns from procedure. Will continue to monitor PO status, skin status, pertinent labs and weight trends. Will f/u in 2 to 3 days. Est energy needs: 7925-3692 kcals (17-20 kcal/kgBW) Est protein needs: 60-75 gms/day (0.6-0.75 gm/kgBW) d/t elev RFTs, low GFR Will continue to monitor and reassess prn. LABS: BUN 91 H, CR 8.41 H, GFR 8 L ( stg 5), CA 6.9 L GI: No BM noted since 02/20/20 per director of development. BS: 12 high risk, multiple DTIs. Please refer to wound assessment report for full details. PES: Problem 1) Increased nutrient needs r/t pt with 0% PO intake aeb pt sedated, intubated, on ventilation, NPO 2) Obesity r/t energy intake in excess of energy needs aeb 147% IBW an BMI of 33.6 kg/m2 3) Altered nutrition related lab values r/t current medical condition aeb hyponatremia, hypochloremia, elev RFTs, Elev LFTs, low GFR, elev Troponin, hypoproteinemia, severe hypoalbuminemia Comments 1) Continue to closely monitor pt NPO status 2) If pt remains NPO for the next 48 hours, consider EN nutrition support of Jevity 1.2 @ 60 ml/hr goal rate 3) Gradually advance pt to oral Renal Specific diet when medically feasible and as tolerated 4) Refer pt to a RD for nutrition education upon D/C 5) Continue current plan of care
--- NOTE | 2020-02-24 19:15 | NUR ---
Opening Shift Note: Patient is intubated/sedated. ET size 8.0/25 @ lip. Vent settings: AC rate 20, vT 500, FiO2 30%, and PEEP 5. Neuro: pupils bilateral 3mm in size/brisk/reactive; moves extremities intermittently slightly; eye opening with deep pain; hypoactive cough/gag. Cardiac: NSR 60s-70s; SBP 120s/130s; all pulses palpable (right radial weak). ET secretions: thick/yellow and oral secretions are rust/bloody/thick. R. nare NGT clamped. Nayak inserted on 02/22/20 for strict I/O: oliguria, MDs aware; mian catheter placed 02/24/[address] Cardenas. Plan for dialysis tomorrow 02/25/20. Skin: multiple DTIs related to rhabdo/increased down time after OD. IV's left hand 20 g inserted on 02/22/20 and LUE midline inserted on 02/22/20. Drips: Versed @ 15; Fentanyl @ 200; Heparin @ 1700 units/hr; NS @ 100 ml/hr. Plan for LHC on Wednesday if patient is stable. Will continue to round/reposition/perform oral care prn.
[2020-02-25] VITALS (93 sets, daily range): BP systolic 126–178; BP diastolic 69–106
[2020-02-25] MEDS: SODIUM CHLORIDE 0.9% 1,000 ML IV SCH
[2020-02-25] MEDS: fentaNYL Drip 2500mCg/250mlNS 250 ML IV SCH (00:30)
--- NOTE | 2020-02-25 03:57 | NUR ---
Patient bathe/linen change Patient given complete CHG bath. Skin integrity assessed for any changes. Linens and gown changed. Patient repositioned for comfort. Yousif catheter dressing changed related to previous bleeding.
[2020-02-25] MEDS: ACCU-CHEK COMFORT CURVE STRIP VI SCH ×5 (05:46→23:52)
[2020-02-25] MEDS: FUROSEMIDE 100 MG/10ML VIAL IV SCH ×2 (05:46→17:14)
[2020-02-25] MEDS: InsuLIN REG 1unit/0.01ml Soln (100units/ml) SC SCH ×5 (05:46→23:52)
[2020-02-25 05:49] LABS: Basophils # (auto) 0 10 ^3/uL (0-0.2); Basophils % (auto) 0.2 % (0.0-2.0); Eosinophils # (auto) 0.1 10 ^3/uL (0-0.8); Hematocrit 33.7 % (41.0-53.0); Hemoglobin 11.7 g/dL (13.5-17.5); Lymphocytes # (auto) 0.8 10 ^3/uL (0.4-5.4); Mean Corpuscular Hemoglobin 31.9 pg (28.0-32.0); Mean Corpuscular Hgb Conc. 34.7 g/dL (32.0-36.0); Mean Corpuscular Volume 91.8 fL (80.0-100.0); Monocytes # (auto) 0.8 10 ^3/uL (0-1.3); Monocytes % (auto) 10.7 % (0.0-12.0); Neutrophils # (auto) 5.9 10 ^3/uL (1.6-8.6); Neutrophils % (auto) 78.1 % (37.0-80.0); Platelet Count (auto) 193 10^3/uL (140-450); Red Blood Cells 3.67 10^6/uL (4.5-5.90); Red Cell Distribution Width 13.6 % (11.8-14.3); White Blood Cell 7.5 10^3/uL (4.4-10.8)
--- NOTE | 2020-02-25 06:06 | NUR ---
Low urine output: 100 ml of pale yellow urine out of baker catheter. Plan for dialysis today.
[2020-02-25 06:07] LABS: Albumin 1.5 g/dL (3.4-5.0); Potassium 4.6 mmol/L (3.5-5.1)
[2020-02-25 06:11] LABS: Bilirubin, Total 0.3 mg/dL (0.2-1.0); Total Protein 5.6 g/dL (6.4-8.2)
[2020-02-25 06:12] LABS: BUN/Creatinine Ratio 11.2
--- NOTE | 2020-02-25 06:30 | NUR ---
PTT 45.7. Heparin drip increased from 19 to 21 ml/hr per protocol.
--- NOTE | 2020-02-25 07:40 | NUR ---
OPENING Received report from Anabella GRANT. Care initiated
--- NOTE | 2020-02-25 08:25 | NUR ---
LEFT MESSAGE ON DR. HUERTAS'S ANSWERING SERVICE, REGARDING ABG RESULTS.
[2020-02-25] MEDS: DOCUSATE SOD 100 MG CAP PO SCH (10:00)
[2020-02-25] MEDS: CEFTRIAXONE SODIUM 2 GM in D5W 5% 50 ML IV SCH (10:00)
[2020-02-25] MEDS: PANTOPRAZOLE 40 MG/10 ML VIAL INJ IV SCH (10:59)
[2020-02-25] MEDS: ASCORBIC ACID 1,000 MG TAB PO SCH (11:00)
[2020-02-25] MEDS: CARVEDILOL 12.5 MG TAB PO SCH ×2 (11:00→22:00)
[2020-02-25] MEDS: SACUBITRIL-VALSARTAN 24mg/26mg TAB PO SCH ×2 (11:00→22:00)
--- NOTE | 2020-02-25 11:54 | NUR ---
BEDSIDE: LOS Craig bedside. No new orders received.
--- NOTE | 2020-02-25 13:25 | NUR ---
DIALYSIS COMPLETE Patient received wash, tolerated well.
[2020-02-25] MEDS: MIDAZOLAM DRIP 50 mg/50mL 50 ML IV SCH (13:31)
[2020-02-25] MEDS: HEPARIN DRIP/D5W 100UNITS/ML 250 ML IV SCH ×2 (13:34)
[2020-02-25 15:15] LABS: Magnesium 2.8 mg/dL (1.6-2.6)
[2020-02-25 15:25] LABS: Pre Albumin 11.8 mg/dL (20.0-40.0)
[2020-02-25 15:39] LABS: Phosphorus 10.6 mg/dL (2.5-4.90)
[2020-02-25 17:55] LABS: INR 1.01 (0.9-1.15); Partial Thromboplastin Time 51.7 sec (23.64-32.05)
--- NOTE | 2020-02-25 18:11 | NUR ---
BEDSIDE: QUYEN Messina. bedside. New orders received. Restart tube feedings.
--- NOTE | 2020-02-25 19:30 | NUR ---
Opening Shift Note: Patient is intubated/sedated. ET size 8.0/25 @ lip. Vent settings: AC rate 20, vT 500, FiO2 30%, and PEEP 5. Neuro: pupils bilateral 3mm in size/brisk/reactive; moves extremities intermittently slightly; eye opening with deep pain; hypoactive cough/gag. Cardiac: NSR 70s-80s; SBP 140s-160s; all pulses palpable. ET secretions: thick/yellow/green and oral secretions are large/bloody/large clots. R. nare NGT clamped. Nayak inserted on 02/22/20 for strict I/O: oliguria, MDs aware; mian catheter placed 02/24/[address] Cardenas. Last dialysis 02/25/20 with wash only. Skin: multiple DTIs related to rhabdo/increased down time after OD. IV's left hand 20 g inserted on 02/22/20 and LUE midline inserted on 02/22/20. Drips: Versed @ 15; Fentanyl @ 200; Heparin @ 2300 units/hr. Plan for LHC when renal function improves. Will continue to round/reposition/perform oral care prn.
--- NOTE | 2020-02-25 20:30 | NUR ---
Page sent to Dr. Parikh: scallop dredger physician for LissethJodi Contrerasvictor manuel. Patient has large amounts of blood and large clots from mouth. Currently on heparin drip @ 23 ml/hr. Per Jl, obtain a STAT CBC and return call with results + page cardiology (Michael) to check on shutting off the heparin drip.
--- NOTE | 2020-02-25 21:00 | NUR ---
Page sent to Dr. Rodriguez: New order received to stop heparin drip at this time related to large amount of blood from mouth.
[2020-02-25 21:23] LABS: Basophils # (auto) 0 10 ^3/uL (0-0.2); Basophils % (auto) 0.3 % (0.0-2.0); Eosinophils # (auto) 0.1 10 ^3/uL (0-0.8); Hematocrit 35.6 % (41.0-53.0); Hemoglobin 12.5 g/dL (13.5-17.5); Lymphocytes # (auto) 0.7 10 ^3/uL (0.4-5.4); Mean Corpuscular Hemoglobin 31.9 pg (28.0-32.0); Monocytes # (auto) 0.9 10 ^3/uL (0-1.3); Monocytes % (auto) 12.2 % (0.0-12.0); Neutrophils # (auto) 5.8 10 ^3/uL (1.6-8.6); Neutrophils % (auto) 77.5 % (37.0-80.0); Platelet Count (auto) 200 10^3/uL (140-450); Red Blood Cells 3.91 10^6/uL (4.5-5.90); Red Cell Distribution Width 13.7 % (11.8-14.3); White Blood Cell 7.4 10^3/uL (4.4-10.8)
--- NOTE | 2020-02-25 21:30 | NUR ---
Dr. Parikh paged again with CBC results and notified of Dr. Rodriguez's order to stop heparin drip.
[2020-02-26] VITALS (105 sets, daily range): BP systolic 117–171; BP diastolic 61–105
--- NOTE | 2020-02-26 01:00 | NUR ---
High BP's: SBPs sustaining in the 160s-170s after coreg and entresto given. Page sent to Dr. Parikh; new order received for hydralazine 10 mg Q6h prn for SBP >160.
[2020-02-26] MEDS: hydrALAZINE HCL 20 MG/ML VL IV PRN (01:51)
--- NOTE | 2020-02-26 02:30 | NUR ---
Patient bathe/linen change Patient given complete CHG bath. Skin integrity assessed for any changes. Linens and gown changed. Patient repositioned for comfort.
[2020-02-26 04:27] LABS: Basophils # (auto) 0 10 ^3/uL (0-0.2); Basophils % (auto) 0.2 % (0.0-2.0); Eosinophils # (auto) 0 10 ^3/uL (0-0.8); Eosinophils % (auto) 0.5 % (0.0-7.0); Hematocrit 37.2 % (41.0-53.0); Hemoglobin 13.1 g/dL (13.5-17.5); Lymphocytes # (auto) 0.6 10 ^3/uL (0.4-5.4); Lymphocytes % (auto) 6.8 % (10.0-50.0); Mean Corpuscular Hemoglobin 32.1 pg (28.0-32.0); Mean Corpuscular Hgb Conc. 35.2 g/dL (32.0-36.0); Mean Corpuscular Volume 91.3 fL (80.0-100.0); Monocytes % (auto) 11.5 % (0.0-12.0); Neutrophils # (auto) 7.3 10 ^3/uL (1.6-8.6); Platelet Count (auto) 201 10^3/uL (140-450); Red Blood Cells 4.08 10^6/uL (4.5-5.90); Red Cell Distribution Width 13.6 % (11.8-14.3); White Blood Cell 9.1 10^3/uL (4.4-10.8)
[2020-02-26 04:46] LABS: Potassium 4.6 mmol/L (3.5-5.1)
[2020-02-26 04:52] LABS: Albumin 1.5 g/dL (3.4-5.0); BUN/Creatinine Ratio 10.8; Bilirubin, Total 0.3 mg/dL (0.2-1.0); Calcium 7.7 mg/dL (8.5-10.1); Total Protein 5.8 g/dL (6.4-8.2)
[2020-02-26] MEDS: InsuLIN REG 1unit/0.01ml Soln (100units/ml) SC SCH ×3 (06:00→18:56)
--- NOTE | 2020-02-26 06:50 | NUR ---
Respiratory note: RECEIVED PATIENT ON RENTAL V200 VENT ORALLY INTUBATED WITH AN 8.0 ETT SECURED VIA OLGA AT THE 24CM MARKING AT THE LIP, AND MECHANICALLY VENTILATED WITH THE CHARTED SETTINGS. SPO2 98%, LUNG SOUNDS CLEAR T/O, NO SECRETIONS WHEN SUCTIONED. SKIN IS WARM/DRY TO THE TOUCH AND IS INTACT NEAR ETT AND OLGA SITE. THERE IS A NGT PLACED IN THE RIGHT NARE AND SECURED TO THE ETT, AND A MIDLINE CATHETER PLACED IN THE LEFT BICEP. NO OTHER ADVANCE ACCESS LINES NOTED. PITTING EDEMA NOTED IN BILATERAL UPPER AND LOWER EXTREMITIES. NO NEW AM CXR TO ASSESS. PATIENT IS SEDATED ON VERSED AND FENTANYL DRIPS, AND IS UNRESPONSIVE TO ALL STIMULI. HE IS RESTING COMFORTABLY AND TOLERATING VENT WELL, NO CHANGES MADE. VENT PLUGGED INTO RED OUTLET AND ALL ALARMS ARE SET AND AUDIBLE. WILL CONTINUE TO ASSESS PATIENT WELL VENTILATOR FUNCTION. PRN MED-NEB NOT INDICATED AT THIS TIME.
[2020-02-26] MEDS: MIDAZOLAM DRIP 50 mg/50mL 50 ML IV SCH ×2 (08:00→21:12)
[2020-02-26 09:44] LABS: INR 0.97 (0.9-1.15)
[2020-02-26] MEDS: ACCU-CHEK COMFORT CURVE STRIP VI SCH ×3 (09:59→18:56)
[2020-02-26] MEDS: DOCUSATE SOD 100 MG CAP PO SCH (09:59)
[2020-02-26] MEDS ORDERED: CARVEDILOL 12.5 MG TAB PO SCH (10:00)
[2020-02-26] MEDS: SACUBITRIL-VALSARTAN 24mg/26mg TAB PO SCH ×2 (10:40→21:10)
[2020-02-26] MEDS: FUROSEMIDE 20 MG/2 ML VIAL IV SCH (10:40)
[2020-02-26] MEDS: PANTOPRAZOLE 40 MG/10 ML VIAL INJ IV SCH (10:40)
[2020-02-26] MEDS: ASCORBIC ACID 1,000 MG TAB PO SCH (10:58)
[2020-02-26 11:08] LABS: Magnesium 2.8 mg/dL (1.6-2.6)
[2020-02-26 11:21] LABS: Phosphorus 10.2 mg/dL (2.5-4.90)
--- NOTE | 2020-02-26 13:30 | NUR ---
DR. MADISON CALLED: ORDERS CALLED DR. MADISON AT THIS TIME. UPDATED MD ON PT'S CURRENT STATUS, LABS AND URINE OUTPUT AT THIS TIME. INFORMED MD THAT PT'S PHOS. LEVEL IS CURRENTLY 10.2 ORDERS GIVEN TO START TUBE FEEDING OF JEVITY 1.2, STARTING RATE AT 20 ML/HR, MAY INCREASE TOLERATED,TO A GOAL RATE OF 30 ML/HR VIA FEEDING PUMP. WILL CARRIED OUT ORDERS GIVEN. CONTINUE CARE. SEE EMAR FOR START TIME.
--- NOTE | 2020-02-26 13:33 | NUR ---
Nutrition Followup Notes Pt wt is 97.2 kg Pt is sedated, intubated, NPO since 02/21/20. Pt scheduled for TPN, PN diet order is not listed yet today. Will continue to monitor PO status, skin status, pertinent labs and weight trends. Will f/u in 2 to 3 days. Est energy needs: 2209-9531 kcals (17-20 kcal/kgBW) Est protein needs: 60-75 gms/day (0.6-0.75 gm/kgBW) d/t elev RFTs, low GFR Will continue to monitor and reassess prn. LABS: BUN 92 H, CR 8.52 H, GFR 8 L ( stg 5), CA 7.7 L, TP 5.5 L, ALB 1.5 L, AST 115 H, ALT 113 H GI: BM noted on 02/26/20 per support representative. BS: 12 high risk, multiple DTIs. Please refer to wound assessment report for full details. PES: Problem 1) Increased nutrient needs r/t pt with 0% PO intake aeb pt sedated, intubated, on ventilation, NPO 2) Obesity r/t energy intake in excess of energy needs aeb 147% IBW an BMI of 33.6 kg/m2 3) Altered nutrition related lab values r/t current medical condition aeb hyponatremia, hypochloremia, elev RFTs, Elev LFTs, low GFR, elev Troponin, hypoproteinemia, severe hypoalbuminemia Comments 1) Continue to closely monitor pt NPO status 2) If pt remains NPO for the next 48 hours, consider EN nutrition support of Jevity 1.2 @ 60 ml/hr goal rate 3) Gradually advance pt to oral Renal Specific diet when medically feasible and as tolerated 4) Refer pt to a RD for nutrition education upon D/C 5) Continue current plan of care
[2020-02-26] MEDS ORDERED: Jevity 1.2 Cal/Fiber 1 Liter GT SCH (14:00)
--- NOTE | 2020-02-26 14:20 | NUR ---
TUBE FEEDINGS STARTED AT THIS TIME: PER MD ORDER STARTED JEVITY 1.2, TUBE FEEDING AT 20 ML/HR VIA FEEDING PUMP. NGT TO RIGHT WHITAKER, PLACEMENT VERIFIED. MAY INCREASE RATE TO TARGET GOAL OF 30 ML/HR. CONTINUE CARE.
[2020-02-26] MEDS: CEFTRIAXONE SODIUM 2 GM in D5W 5% 50 ML IV SCH ×2 (14:50→15:29)
[2020-02-26] MEDS: CARVEDILOL 12.5 MG TAB PO SCH (18:00)
[2020-02-26] MEDS: fentaNYL Drip 2500mCg/250mlNS 250 ML IV SCH (19:24)
--- NOTE | 2020-02-26 19:30 | NUR ---
DR. HUERTAS AT BEDSIDE: ORDERS MD UPDATED ON PT'S STATUS, PENDING HD FOR TOMORROW. MD WANTING FOR CPAP TRIAL AFTER HD COMPLETED. CPAP TRIAL PER PROTOCOL. CXR AND ABG IN AM TOMORROW. WILL CARRY OUT ORDERS GIVEN. TRANSFER CARE TO NOC RN.
--- NOTE | 2020-02-26 19:30 | NUR ---
Opening Shift Note: Patient is intubated/sedated. ET size 8.0/25 @ lip. Vent settings: AC rate 20, vT 500, FiO2 30%, and PEEP 5. Neuro: pupils bilateral 4mm in size/brisk/reactive; moves extremities intermittently slightly; eye opening with deep pain; hypoactive cough/gag. Cardiac: NSR 70s; SBP 120s-130s; all pulses palpable. ET secretions: thick/yellow and oral secretions are small/bloody/large clots. R. nare NGT running Jevity @ 30 ml/hr (goal). Nayak inserted on 02/22/20 for strict I/O: oliguria, MDs aware; mian catheter placed 02/24/[address] Cardenas. Last dialysis 02/25/20 with wash only; plan for next dialysis on 02/27/20. Skin: multiple DTIs related to rhabdo/increased down time after OD. IV's left hand 20 g inserted on 02/22/20 and LUE midline inserted on 02/22/20. Drips: Versed @ 12; Fentanyl @ 200. Plan for LHC when renal function improves. Will continue to round/reposition/perform oral care prn.
--- NOTE | 2020-02-26 20:15 | NUR ---
High residual: Current residual from NGT after Jevity 30 ml/hr running is 50 ml. Will hold at this time and restart when residuals are minimal.
--- NOTE | 2020-02-26 21:30 | NUR ---
Dr. Marin called for update on patient. New orders placed by physician for repeat blood cultures.
[2020-02-27] VITALS (103 sets, daily range): BP systolic 114–205; BP diastolic 61–119
--- NOTE | 2020-02-27 | NUR ---
Feeding restarted at 30 ml/hr; residual is 10 ml at this time.
--- NOTE | 2020-02-27 03:00 | NUR ---
High residual again: Residual is 60 ml after restarting tube feedings at 0000. Feedings held at this time.
[2020-02-27] MEDS: hydrALAZINE HCL 20 MG/ML VL IV PRN ×2 (03:30→19:04)
--- NOTE | 2020-02-27 04:00 | NUR ---
Patient bathe/linen change Patient given complete CHG bath. Skin integrity assessed for any changes. Linens and gown changed. Patient repositioned for comfort.
[2020-02-27 04:06] LABS: Basophils # (auto) 0 10 ^3/uL (0-0.2); Basophils % (auto) 0.2 % (0.0-2.0); Eosinophils # (auto) 0.2 10 ^3/uL (0-0.8); Eosinophils % (auto) 1.5 % (0.0-7.0); Hematocrit 37.8 % (41.0-53.0); Hemoglobin 13.1 g/dL (13.5-17.5); Lymphocytes # (auto) 0.8 10 ^3/uL (0.4-5.4); Lymphocytes % (auto) 7.7 % (10.0-50.0); Mean Corpuscular Hemoglobin 31.6 pg (28.0-32.0); Mean Corpuscular Hgb Conc. 34.6 g/dL (32.0-36.0); Mean Corpuscular Volume 91.4 fL (80.0-100.0); Monocytes # (auto) 1.3 10 ^3/uL (0-1.3); Monocytes % (auto) 11.9 % (0.0-12.0); Neutrophils # (auto) 8.3 10 ^3/uL (1.6-8.6); Neutrophils % (auto) 78.7 % (37.0-80.0); Platelet Count (auto) 227 10^3/uL (140-450); Red Blood Cells 4.14 10^6/uL (4.5-5.90); Red Cell Distribution Width 13.8 % (11.8-14.3); White Blood Cell 10.6 10^3/uL (4.4-10.8)
[2020-02-27 04:28] LABS: Potassium 5.2 mmol/L (3.5-5.1)
[2020-02-27 04:34] LABS: Albumin 1.5 g/dL (3.4-5.0); BUN/Creatinine Ratio 12.1; Bilirubin, Total 0.3 mg/dL (0.2-1.0); Calcium 7.5 mg/dL (8.5-10.1); Total Protein 5.5 g/dL (6.4-8.2)
[2020-02-27] MEDS: InsuLIN REG 1unit/0.01ml Soln (100units/ml) SC SCH ×4 (05:15→18:00)
[2020-02-27] MEDS: ACCU-CHEK COMFORT CURVE STRIP VI SCH ×4 (05:16→18:06)
--- NOTE | 2020-02-27 07:30 | NUR ---
OPENING NOTE SHIFT REPORT RECEIVED AND ASSUMED CARE OF PT FROM RONNA GRANT
--- NOTE | 2020-02-27 08:10 | NUR ---
METAL BURRER AT BEDSIDE
[2020-02-27] MEDS ORDERED: SODIUM CHL 0.9% 1000 ML BAG XX ONE (08:30)
[2020-02-27] MEDS: fentaNYL Drip 2500mCg/250mlNS 250 ML IV SCH ×2 (08:37→21:03)
--- NOTE | 2020-02-27 09:00 | NUR ---
MARKO PERALTA AT BEDSIDE NO NEW ORDERS AT THIS TIME
[2020-02-27] MEDS: DOCUSATE SOD 100 MG CAP PO SCH (10:00)
[2020-02-27] MEDS ORDERED: cefTRIAXone 1GM/50ML D5W 0 ML IV ONE (10:56)
--- NOTE | 2020-02-27 11:02 | NUR ---
DR. FOWLER AT BEDSIDE ORDERS RECEIVED
[2020-02-27] MEDS: CEFTRIAXONE SODIUM 2 GM in D5W 5% 50 ML IV SCH (11:05)
[2020-02-27] MEDS: PANTOPRAZOLE 40 MG/10 ML VIAL INJ IV SCH ×2 (11:07→23:01)
[2020-02-27] MEDS: CARVEDILOL 12.5 MG TAB PO SCH ×2 (11:35→20:28)
[2020-02-27] MEDS: FUROSEMIDE 20 MG/2 ML VIAL IV SCH (11:36)
[2020-02-27] MEDS: SACUBITRIL-VALSARTAN 24mg/26mg TAB PO SCH ×2 (11:36→23:01)
--- NOTE | 2020-02-27 14:30 | NUR ---
Respiratory note: CPAP TRIAL INITIATED. PRESSURE SUPPORT: 7 AND PEEP: +5. PT OPENS EYES, BUT DOES NOT KEEP THEM OPEN FOR LONG. RN IS AWARE. ALL VITALS STABLE AT THIS TIME. THIS RT TO REMAIN AT BEDSIDE.
--- NOTE | 2020-02-27 14:45 | NUR ---
Respiratory note: CPAP TRIAL ENDED. PT RR INCREASED TO 45 AND BLOOD PRESSURE INCREASED. SWITCHED PT BACK ON PREVIOUS SETTINGS. PT RR DECREASED FROM 45 TO 24 BPM. RN IS AWARE, WILL CONTINUE TO MONITOR PT.
--- NOTE | 2020-02-27 18:05 | NUR ---
ELIMINATION PT HAD MODERATE SOFT BROWN BM. PARTIAL LINEN CHANGE AND CLEANSED WITH SOAP AND WATER. PT TOLERATED WELL.
--- NOTE | 2020-02-27 18:16 | NUR ---
Respiratory note: RECEIVED PT ON VENT, VENT CONNECTED TO RED OUTLET AND O2 SOURCE. ALARMS ARE SET AND AUDIBLE. AMBU BAG AND MASK AT BEDSIDE. BS ARE COURSE SXD X2 VIA ETT FOR COPIOUS AMOUNT OF TENACIOUS YELLOW/GREEN SECRETIONS, TENACIOUS SECRETIONS ADHERING TO INSIDE OF ETT. RN NOTIFIED. WILL CONTINUE TO MONITOR Q2H AND NEEDED.
--- NOTE | 2020-02-27 19:00 | NUR ---
PT IS MOVING ALL EXTREMITIES WITH LEGS HANGING OFF BED. WILL INCREASE SEDATION
--- NOTE | 2020-02-27 19:58 | NUR ---
CLOSING NOTE SHIFT REPORT GIVEN AND CARE ENDORSED TO GLENN GRANT
--- NOTE | 2020-02-27 20:00 | NUR ---
Opening Shift Note: Patient is intubated/sedated. Vent settings: AC rate 20, vT 500, FiO2 30%, and PEEP 5. Neuro: pupils bilateral 4mm in size/brisk/reactive; moves extremities intermittently moderately; eye spontaneously, tracking; active cough/gag. Cardiac: NSR 90s; SBP 140s-170s; all pulses palpable. ET secretions: thick/yellow and oral secretions are moderate, intermitted pink secretions . R. nare NGT, intermitted suctioning. Nayak inserted on 02/22/20 for strict I/O: oliguria, MDs aware; mian catheter placed 02/24/[address] Cardenas. Skin: multiple DTIs related to rhabdo/increased down time after OD. LUE midline inserted on 02/22/20. Drips: Fentanyl @ 200. Plan for LHC when renal function improves. Will continue to round/reposition/perform oral care prn.
--- NOTE | 2020-02-27 20:07 | NUR ---
Respiratory note: AT BEDSIDE FOR ROUTINE VENT CHECK. PT ACTIVELY MOVING HANDS AND FEET. BS ARE COURSE, LAVAGE SXD FOR COPIOUS AMOUNTS OF TENACIOUS SECRETIONS. AGAIN SECRETIONS ADHERE TO INNER DIAMETER OF ETT. NO VENT CHANGES MADE. WILL CONTINUE TO MONITOR.
[2020-02-27] MEDS: MIDAZOLAM DRIP 50 mg/50mL 50 ML IV SCH (21:04)
--- NOTE | 2020-02-27 21:24 | NUR ---
REGARDING SEDATION VACATION PT IS AGITATED, MOVING IN BED, OPENING EYES. PLACED PT ON VERSED Addendum: 02/27/20 at 2125 by GLENN YU RN RN Amended: Links added.
[2020-02-28] VITALS (87 sets, daily range): BP systolic 114–185; BP diastolic 66–114
[2020-02-28] MEDS: MIDAZOLAM DRIP 50 mg/50mL 50 ML IV SCH ×2 (01:24→06:09)
--- NOTE | 2020-02-28 02:55 | NUR ---
PT HAD BM LIQUID BROWN
--- NOTE | 2020-02-28 03:04 | NUR ---
PT RECEIVED FULL BATH AND BED LININ CHANGE
[2020-02-28 04:19] LABS: Basophils # (auto) 0 10 ^3/uL (0-0.2); Basophils % (auto) 0.2 % (0.0-2.0); Eosinophils # (auto) 0.2 10 ^3/uL (0-0.8); Eosinophils % (auto) 1.6 % (0.0-7.0); Hematocrit 35.2 % (41.0-53.0); Hemoglobin 12.2 g/dL (13.5-17.5); Lymphocytes # (auto) 0.9 10 ^3/uL (0.4-5.4); Lymphocytes % (auto) 8.9 % (10.0-50.0); Mean Corpuscular Hemoglobin 31.4 pg (28.0-32.0); Mean Corpuscular Hgb Conc. 34.7 g/dL (32.0-36.0); Mean Corpuscular Volume 90.5 fL (80.0-100.0); Monocytes # (auto) 1.4 10 ^3/uL (0-1.3); Monocytes % (auto) 14.5 % (0.0-12.0); Neutrophils # (auto) 7.2 10 ^3/uL (1.6-8.6); Neutrophils % (auto) 74.8 % (37.0-80.0); Nucleated Red Blood Cells % 0.1 %; Platelet Count (auto) 245 10^3/uL (140-450); Red Blood Cells 3.89 10^6/uL (4.5-5.90); Red Cell Distribution Width 14.2 % (11.8-14.3); White Blood Cell 9.6 10^3/uL (4.4-10.8)
[2020-02-28 04:36] LABS: INR 1.02 (0.9-1.15); Partial Thromboplastin Time 27.8 sec (23.64-32.05)
[2020-02-28 04:40] LABS: Potassium 4.5 mmol/L (3.5-5.1)
[2020-02-28 04:50] LABS: Albumin 1.8 g/dL (3.4-5.0); BUN/Creatinine Ratio 11.5; Bilirubin, Direct 0.1 mg/dL (0-0.2); Bilirubin, Total 0.3 mg/dL (0.2-1.0); Calcium 7.4 mg/dL (8.5-10.1); Magnesium 3.2 mg/dL (1.6-2.6); Total Protein 5.5 g/dL (6.4-8.2)
[2020-02-28] MEDS ORDERED: SODIUM CHLORIDE 0.9 % NEB SOLN 3ML NEB ONE ×2 (05:31→09:51)
[2020-02-28] MEDS: ACCU-CHEK COMFORT CURVE STRIP VI SCH ×4 (05:38→18:14)
[2020-02-28] MEDS: InsuLIN REG 1unit/0.01ml Soln (100units/ml) SC SCH ×4 (06:00→18:00)
--- NOTE | 2020-02-28 06:28 | NUR ---
UPDATED FAMILY OVER PHONE UPDATED FAMILY ON POC, PTS STATUS, ADDRESSED QUESTIONS AND CONCERNS.
--- NOTE | 2020-02-28 07:10 | NUR ---
OPENING NOTE SHIFT REPORT GET BACK AND ASSUMED CARE OF PT FROM ROCKY GRANT
[2020-02-28] MEDS: CARVEDILOL 12.5 MG TAB PO SCH ×2 (08:35→18:15)
[2020-02-28] MEDS: PANTOPRAZOLE 40 MG/10 ML VIAL INJ IV SCH ×2 (09:36→22:00)
[2020-02-28] MEDS: DOCUSATE SOD 100 MG CAP PO SCH (09:37)
[2020-02-28] MEDS: FUROSEMIDE 20 MG/2 ML VIAL IV SCH (09:37)
[2020-02-28] MEDS: CEFTRIAXONE SODIUM 2 GM in D5W 5% 50 ML IV SCH (09:37)
[2020-02-28] MEDS: SACUBITRIL-VALSARTAN 24mg/26mg TAB PO SCH ×2 (09:37→22:00)
[2020-02-28] MEDS: ALBUTEROL SULF 2.5 MG/0.5ML(0.5%) NEB SOLN NEB PRN ×2 (09:56→23:16)
[2020-02-28] MEDS: fentaNYL Drip 2500mCg/250mlNS 250 ML IV SCH (10:52)
--- NOTE | 2020-02-28 11:56 | NUR ---
WOUND CARE NOTE: Wound care in to see patient for reevaluation of wounds. Patient continue resting on air bed in ICU Rm. 107. Patient is intubated and mechanically ventilated. Patient appears to be in no pain using Taylor Márquez Faces Pain Scale. His Ladarius score is 12. Patient came in with multiple ecchymotic area/early DTI all over his body but more prominently to his Rt side. Rt lateral temporal area noted with 4x3cm open DTI. Wound is red with bright red fiorella wound, scant serous drainage noted, no odor noted. Another open blister/resolving DTI noted to his L medial thigh measuring 5x7cm. Wound is red with minimal serous drainage,no odor noted.Rt. medial forearm noted with 1.5x1.5cm open partial thickness wound appears to be from opened blister/pressure injury, scant serous drainage noted, no odor noted. Ecchymosis/pressure injuries to Rt lateral chest,Rt shoulder, Rt upper arm, Rt wrist, Rt. dorsal hand, Rt lateral knee, Rt dorsal food, Lt medial knee, L medial foot and L hip looks resolving and fading. Some area are blanching and some area blanches dull. Cleansed all open wounds with NS,patted dry with sterile gauze, applied Thera honey gel and covered with Opti foam gentle dressing. New photograph of wounds are taken for reference. Patient tolerated well. Dialysis nurse at bedside. RECOMMENDATION: Continuation of all wound care orders MD prescribed, continue with skin/wound plan of care, continue monitoring by wound care while patient is hospitalized. Addendum: 02/28/20 at 1500 by Pham Orellana RN Amended: Links added.
--- NOTE | 2020-02-28 12:40 | NUR ---
RESOLUTION SPECIALIST AT BEDSIDE
[2020-02-28] MEDS ORDERED: CATHFLO ACTIVASE (ALTEPLASE) 2 MG VIAL IV ONE (12:45)
--- NOTE | 2020-02-28 14:03 | NUR ---
PAGED DR. WATKINS REGARDING PT'S RESTLESSNESS AND POSSIBLE MEDICATION
--- NOTE | 2020-02-28 15:14 | NUR ---
DIALYSIS COMPLETE. PT TOLERATED DIALYSIS. 2 LITERS REMOVED
[2020-02-28] MEDS: DexMEDEtomidine 400 MCG in D5W 5% 96 ML IV SCH (15:38)
--- NOTE | 2020-02-28 15:45 | NUR ---
ELIMINATION PT HAD LARGE LIQUID DARK GREEN/BROWN STOOL. CLEANSED WITH SOAP AND WATER. FULL LINEN CHANGE DONE
[2020-02-28] MEDS: hydrALAZINE HCL 20 MG/ML VL IV PRN (16:24)
--- NOTE | 2020-02-28 17:06 | NUR ---
FAXED OVER TRANSFER ORDERS PAPERWORK TO DR. Jyotsna BANUELOS PER HIS REQUEST TO HIS FAX#[phone].
--- NOTE | 2020-02-28 17:15 | NUR ---
LEFT DR. Jyotsna BANUELOS MESSAGE REGARDING FAX SENT OVER. AWAITING CALL BACK.
--- NOTE | 2020-02-28 17:20 | NUR ---
[facility] CALLED UPDATED ON PT STATUS AND QUESTIONS ANSWERED. STATES NO BED AT THIS TIME.
--- NOTE | 2020-02-28 17:40 | NUR ---
RECEIVED CALL BACK FROM DR. WATKINS ORDERS RECEIVED
--- NOTE | 2020-02-28 18:00 | NUR ---
ELIMINATION PT HAD LARGE LIQUID BROWN/GREEN BM. PT CLEANSED WITH SOAP AND WATER.
--- NOTE | 2020-02-28 19:00 | NUR ---
Respiratory note: PT EXTUBATED AT THIS TIME PER M.D. ORDERS. PT WAS PLACED ON COOL AEROSOL @ 8L/30% FIO2. PT APPEARS TO BE TOLERATING WELL. HR 97, RR 18, SPO2 97%. NO STRIDOR NOTED. BS COARSE T/O. PT IS ABLE TO FOLLOW COMMANDS. WILL CONTINUE TO MONITOR PT.
--- NOTE | 2020-02-28 19:20 | NUR ---
CALL OUT TO DR. BRAUN REGARDING PT'S RESPIRATORY RATE
--- NOTE | 2020-02-28 19:30 | NUR ---
RECEIVED CALL BACK ORDERS RECEIVED
--- NOTE | 2020-02-28 20:00 | NUR ---
REPORT RECEIVED AND ASSUMED CARE; SEE INTERVENTIONS FOR ASSESSMENT;VS STABLE AT THIS TIME; PT. EXTUBATED TODAY AT 18:40 AND PLACED ON COOL MIST MASK AT 30%; PT. HAS WEAK COUGH AND VERY WEAK VOICE; WILL CONT. TO MONITOR.
[2020-02-29] VITALS (25 sets, daily range): BP systolic 140–186; BP diastolic 80–108
--- NOTE | 2020-02-29 | NUR ---
PT. HAD BM-MODERATE, BROWN, LIQUID; ANDRZEJ-CARE PROVIDED WITH COMPLETE LINEN CHANGE; PT. TOLERATED WELL.
[2020-02-29] MEDS: ACCU-CHEK COMFORT CURVE STRIP VI SCH ×4 (00:03→17:42)
--- NOTE | 2020-02-29 01:20 | NUR ---
PT. HAD A BM-MODERATE, BROWN, LIQUID; ANDRZEJ-CARE PROVIDED; PLACED FLEXISEAL PT. HAS BLANCHABLE ERYTHEMA THROUGHOUT GROIN AREA; PT. TOLERATED WELL; WILL CONT. TO MONITOR.
--- NOTE | 2020-02-29 05:11 | NUR ---
pt. had bm-moderate, brown, liquid; fiorella-care provided; flexiseal had been pulled out by patient/ re-inserted; linen change; pt. tolerated well; will cont. to monitor.
[2020-02-29] MEDS: InsuLIN REG 1unit/0.01ml Soln (100units/ml) SC SCH ×4 (06:00→17:42)
--- NOTE | 2020-02-29 07:10 | NUR ---
Respiratory note: At bedside for prn tx assessment. HR 96, RR 20, SPO2 95% on room air. Pt resting comfortably in bed, no respiratory distress noted. PRN medneb tx and BIPAP not indicated at this time. Ordered ABG drawn, results to follow. Will continue to monitor.
--- NOTE | 2020-02-29 07:39 | NUR ---
OPENING Received report from Leonarda GRANT. Care initiated and initial assessment complete.
[2020-02-29 07:45] LABS: BUN/Creatinine Ratio 11.8; Calcium 7.6 mg/dL (8.5-10.1); Potassium 5.1 mmol/L (3.5-5.1)
--- NOTE | 2020-02-29 08:30 | NUR ---
SRIRAM Alicea MD for new orders. Patient is stable at this time, requesting downgrade. Awaiting return phone call.
[2020-02-29] MEDS: CARVEDILOL 12.5 MG TAB PO SCH ×2 (08:44→18:00)
[2020-02-29 09:31] LABS: Basophils # (auto) 0.1 10 ^3/uL (0-0.2); Basophils % (auto) 0.6 % (0.0-2.0); Eosinophils # (auto) 0.1 10 ^3/uL (0-0.8); Eosinophils % (auto) 0.4 % (0.0-7.0); Hematocrit 37.7 % (41.0-53.0); Hemoglobin 12.9 g/dL (13.5-17.5); Lymphocytes # (auto) 0.7 10 ^3/uL (0.4-5.4); Lymphocytes % (auto) 4.9 % (10.0-50.0); Mean Corpuscular Hemoglobin 30.9 pg (28.0-32.0); Mean Corpuscular Hgb Conc. 34.3 g/dL (32.0-36.0); Mean Corpuscular Volume 90.2 fL (80.0-100.0); Monocytes # (auto) 1.7 10 ^3/uL (0-1.3); Monocytes % (auto) 11.5 % (0.0-12.0); Neutrophils # (auto) 11.9 10 ^3/uL (1.6-8.6); Neutrophils % (auto) 82.6 % (37.0-80.0); Platelet Count (auto) 310 10^3/uL (140-450); Red Blood Cells 4.18 10^6/uL (4.5-5.90); Red Cell Distribution Width 13.6 % (11.8-14.3); White Blood Cell 14.4 10^3/uL (4.4-10.8)
[2020-02-29] MEDS: PANTOPRAZOLE 40 MG/10 ML VIAL INJ IV SCH ×2 (09:49→22:12)
[2020-02-29] MEDS: FUROSEMIDE 20 MG/2 ML VIAL IV SCH (09:49)
[2020-02-29] MEDS: DOCUSATE SOD 100 MG CAP PO SCH (09:53)
[2020-02-29] MEDS: SACUBITRIL-VALSARTAN 24mg/26mg TAB PO SCH ×2 (09:55→22:45)
--- NOTE | 2020-02-29 09:57 | NUR ---
HANDOFF REPORT Report given to Leonarda GRANT in the [facility]. Patient being attached to portable monitor to go to [facility] at this time. Patient alerted to transfer.
--- NOTE | 2020-02-29 10:01 | NUR ---
SPOKE TO FAMILY Updated patients mother, Justine, on patients status. Informed her that we are moving her son to the [facility] with nurse Leonarda and provided direct extension for ICU.
[2020-02-29] MEDS: DexMEDEtomidine 400 MCG in D5W 5% 96 ML IV SCH (10:08)
--- NOTE | 2020-02-29 10:15 | NUR ---
TRANSFER: Received patient via specialty bed from ICU 107 after receiving report from RUDY Duff to rm 263. Patient still ICU status. Dr Jyotsna Marin still to return phone call for possible downgrade. Patient connected to bedside monitor and shows no s/s of distress. Patient is alert to self, doesn't answer questions, but eyes spontaneous open and open to name. Patient is on RA with O2 stats 94%. Nayak and rectal tube in place draining to gravity. Left upper arm midline in place, IV antibiotics infusing. Patient with several wounds to right forehead, right hip, bilateral ankles and right knee. Dressings to wounds C/D/I. Bed in lowest position, rails x4 up for patient safety as well as mittens on. Will continue to monitor Q1hr/PRN.
[2020-02-29] MEDS: CEFTRIAXONE SODIUM 2 GM in D5W 5% 50 ML IV SCH (10:40)
[2020-02-29] MEDS: hydrALAZINE HCL 20 MG/ML VL IV PRN ×2 (11:32→22:13)
--- NOTE | 2020-02-29 13:15 | NUR ---
Found patient's rectal tube pulled out and on the floor with balloon inflated. Patient still in mittens, appears to have been pulled out by patient's feet due to him constantly kicking legs in the bed.
--- NOTE | 2020-02-29 16:13 | NUR ---
Received Social Service Consult to provide resources on substance cessation support counseling. Pt is confused and disoriented at this time. The nurse stated that it would be better to come back tomorrow. Left resources in chart.
--- NOTE | 2020-02-29 16:38 | NUR ---
D/C Planning Per SS consult regarding outpatient chair time dialysis. Faxed clinical information to [facility] dialysis. Pending chair time.
--- NOTE | 2020-02-29 17:50 | NUR ---
Patient to radiology for CT scan of head on portable monitor and RUDY Pearl.
--- NOTE | 2020-02-29 18:48 | NUR ---
Spoke to Deena Stubbs NP regarding Dr Rodriguez's plan for heart cath. Per RESOURCE CENTER TEACHER, Dr Rodriguez has spoken to Dr Craig and nephrology wants to wait until his kidney function improves. Informed RESOURCE CENTER TEACHER of Dr Td Marin's wishes for patient to receive a tunnel dialysis catheter placement with radiology. Dr Rodriguez will discuss with Dr Craig tomorrow.
--- NOTE | 2020-02-29 19:30 | NUR ---
OPENING SHIFT NOTE: Patient resting in bed, no s/s of distress. Patient remain alert to self, but doesn't follow commands consistently. Patient to have tunnel catheter placement by radiology tomorrow. Report given to NOC Ryanne GRANT.
[2020-02-29 19:57] LABS: Folate (Folic Acid) 11.69 ng/mL (5.38-24)
--- NOTE | 2020-02-29 20:30 | NUR ---
Respiratory note: ASSESSMENT FOR PRN MED NEB TX. HR 70, SPO2 97% ON ROOM AIR, RR 25, BS DIMINISHED. PT PRESENTING NO RESPIRATORY DISTRESS AT THIS TIME. MED NEB TX NOT INDICATED. WILL CONTINUE TO MONITOR.
--- NOTE | 2020-02-29 22:32 | NUR ---
faxed paper work to HR 's note
--- NOTE | 2020-02-29 23:34 | NUR ---
UPDATED FAMILY UPDATED PT'S UNCLE REGARDING PT'S STATUS.
[2020-03-01] VITALS: BP 179/94
[2020-03-01] MEDS: ACCU-CHEK COMFORT CURVE STRIP VI SCH ×5 (00:42→22:35)
[2020-03-01] MEDS: InsuLIN REG 1unit/0.01ml Soln (100units/ml) SC SCH ×5 (00:48→22:34)
--- NOTE | 2020-03-01 01:06 | NUR ---
OBTAINED CONSENTS BY PHONE FROM PT'S MOM (ZACKERY) OBTAINED CONSENTS FOR SURGICAL PROCEDURE (TUNNELED DIALYSIS CATHETER PLACEMENT), ANESTHESIA AND BLOOD TRANSFUSION.
[2020-03-01 03:57] LABS: Basophils # (auto) 0.1 10 ^3/uL (0-0.2); Basophils % (auto) 0.5 % (0.0-2.0); Eosinophils # (auto) 0.2 10 ^3/uL (0-0.8); Eosinophils % (auto) 1.3 % (0.0-7.0); Hematocrit 40.8 % (41.0-53.0); Hemoglobin 13.7 g/dL (13.5-17.5); Lymphocytes % (auto) 6.6 % (10.0-50.0); Mean Corpuscular Hgb Conc. 33.5 g/dL (32.0-36.0); Mean Corpuscular Volume 92.7 fL (80.0-100.0); Monocytes # (auto) 1.5 10 ^3/uL (0-1.3); Monocytes % (auto) 10.3 % (0.0-12.0); Neutrophils % (auto) 81.3 % (37.0-80.0); Nucleated Red Blood Cells % 0.1 %; Platelet Count (auto) 420 10^3/uL (140-450); White Blood Cell 14.7 10^3/uL (4.4-10.8)
[2020-03-01 04:00] VITALS: BP 179/98
[2020-03-01 04:15] LABS: Calcium 7.7 mg/dL (8.5-10.1); Magnesium 3.5 mg/dL (1.6-2.6)
[2020-03-01 04:31] LABS: BUN/Creatinine Ratio 12.5; INR 1.04 (0.9-1.15); Partial Thromboplastin Time 26.2 sec (23.64-32.05)
--- NOTE | 2020-03-01 07:00 | NUR ---
yue hospitalist regarding low bp 83/37 map 49 Addendum: 03/01/20 at 0825 by GLENN YU RN RN wrong pt
--- NOTE | 2020-03-01 07:10 | NUR ---
DIALYSIS STARTED AT 0710.
[2020-03-01] MEDS ORDERED: SODIUM CHL 0.9% 1000 ML BAG XX ONE (07:30)
[2020-03-01 08:00] VITALS: BP 193/104
--- NOTE | 2020-03-01 08:51 | NUR ---
renita linen missy, partial bath given Addendum: 03/01/20 at 0896 by GLENN YU RN RN yosvany olson, actual jose daniel [phone]
[2020-03-01] MEDS: DOCUSATE SOD 100 MG CAP PO SCH (10:00)
[2020-03-01] MEDS: CEFTRIAXONE SODIUM 2 GM in D5W 5% 50 ML IV SCH (10:00)
--- NOTE | 2020-03-01 10:15 | NUR ---
DIALYSIS STOPPED 4 LITERS REMOVED AT THIS TIME. PATIENT TOLERATED WELL.
--- NOTE | 2020-03-01 10:29 | NUR ---
SPOKE TO DR. GALLO, STATES PATIENT WILL GO TO [facility] ON Wednesday03/04/20.
[2020-03-01] MEDS: PANTOPRAZOLE 40 MG/10 ML VIAL INJ IV SCH ×2 (11:15→22:34)
[2020-03-01] MEDS: FUROSEMIDE 20 MG/2 ML VIAL IV SCH (11:16)
[2020-03-01] MEDS: SACUBITRIL-VALSARTAN 24mg/26mg TAB PO SCH ×2 (11:17→22:34)
[2020-03-01] MEDS: CARVEDILOL 12.5 MG TAB PO SCH ×2 (11:17→18:20)
[2020-03-01 11:45] VITALS: BP 191/108
[2020-03-01] MEDS: SEVELAMER 800 MG TAB PO SCH ×2 (12:18→18:20)
[2020-03-01] MEDS: hydrALAZINE HCL 20 MG/ML VL IV PRN ×2 (12:18→23:37)
--- NOTE | 2020-03-01 12:30 | NUR ---
ELECTROENCEPHALOGRAM UNABLE TO DO EEG. PT RESTLESS AND PULLING OFF LEADS. PRIMARY RN AWARE.
[2020-03-01] MEDS ORDERED: cloNIDine HCL 0.1 MG TAB PO PRN ×2 (13:45→18:00)
[2020-03-01] MEDS ORDERED: METOPROLOL TARTRATE 1MG/1ML-5ML VIAL IV PRN (14:00)
--- NOTE | 2020-03-01 14:40 | NUR ---
SPOKE TO PATIENTS MOTHER ZACKERY AND INFORMED HER OF PATIENTS CURRENT CONDITION AND FACT THAT HE IS MOVING TO ROOM 251-B.
--- NOTE | 2020-03-01 14:55 | NUR ---
[facility] pt transferred to floor MIKAYLA BORJA transferred to [facility] via [facility] on metal reclamation kettle tender. All patient medications and personal belongings transferred with patient to receiving floor. Patient care transferred to GLEN GRANT.
--- NOTE | 2020-03-01 14:55 | NUR ---
Patient transferred to floor Patient transferred to 251B at this time. No distress noted. Patient is currently resting in bed with eyes closed.
[2020-03-01 17:00] VITALS: BP 155/99
--- NOTE | 2020-03-01 18:25 | NUR ---
VQ Scan Called supervisor ship maintenance services regarding patient's VQ scan. supervisor ship maintenance services unaware of why the VQ scan was not done. Called to [facility] RN, RN unaware of why VQ Scan was not done at this time. Due to after hours and upcoming weekend, nuclear medicine is unable to contacted at this time to follow-up.
--- NOTE | 2020-03-01 18:52 | NUR ---
Baker/Rectal Discontinued Discontinued baker and rectal tube at this time. No distress noted. Gave patient urinal and instructed on use.
--- NOTE | 2020-03-01 19:05 | NUR ---
PT ASSESSED, NO SOB NOTED. SAT 100% ON RA, BS CLEAR BILATERALLY. PRN TX NOT INDICATED AT THIS TIME
--- NOTE | 2020-03-01 19:30 | NUR ---
Closing Shift Note Patient resting in bed. No distress noted. Report given. Will endorse care to the manufacturing shift supervisor RN.
[2020-03-01 22:00] VITALS: BP 164/92
[2020-03-02 02:00] VITALS: BP 149/85
--- NOTE | 2020-03-02 03:27 | NUR ---
PT HAS FELT URGE TO VOID AND HAS BEEN UNSUCCESSFUL. PAGED DR MORTON ADMINISTRATIVE FELLOW AND NEW ORDERS RECEIVED TO RE INSERT HERNÁNDEZ IF BLADDER SCAN SHOWS GREATER THAN 200 MLS.
--- NOTE | 2020-03-02 03:45 | NUR ---
PT BLADDER SCANNED FOR 406MLS AND HERNÁNDEZ CATH REINSERTED AT THIS TIME. HERNÁNDEZ CATH TO GRAVITY AND 300MLS CLEAR YELLOW URINE DRAINED AT THIS TIME.
[2020-03-02 05:00] VITALS: BP 170/98
[2020-03-02] MEDS: InsuLIN REG 1unit/0.01ml Soln (100units/ml) SC SCH ×2 (06:00→12:00)
[2020-03-02] MEDS: ACCU-CHEK COMFORT CURVE STRIP VI SCH ×2 (06:00→13:18)
--- NOTE | 2020-03-02 07:00 | NUR ---
Opening Shift Note received report on the patient. Awake lying in bed. Patient shows no signs of distress at this time. Discussed the plan of care with the patient. Bed in lowest position, side rails up x2, and the call light is within reach. Will continue to monitor.
[2020-03-02 07:32] LABS: Basophils # (auto) 0.1 10 ^3/uL (0-0.2); Basophils % (auto) 0.5 % (0.0-2.0); Eosinophils # (auto) 0.4 10 ^3/uL (0-0.8); Eosinophils % (auto) 2.5 % (0.0-7.0); Hematocrit 40.2 % (41.0-53.0); Hemoglobin 13.8 g/dL (13.5-17.5); Lymphocytes # (auto) 1.2 10 ^3/uL (0.4-5.4); Lymphocytes % (auto) 8.1 % (10.0-50.0); Mean Corpuscular Hemoglobin 31.3 pg (28.0-32.0); Mean Corpuscular Hgb Conc. 34.5 g/dL (32.0-36.0); Mean Corpuscular Volume 90.9 fL (80.0-100.0); Monocytes # (auto) 1.6 10 ^3/uL (0-1.3); Monocytes % (auto) 10.6 % (0.0-12.0); Neutrophils # (auto) 11.9 10 ^3/uL (1.6-8.6); Neutrophils % (auto) 78.3 % (37.0-80.0); Nucleated Red Blood Cells % 0.1 %; Platelet Count (auto) 410 10^3/uL (140-450); Red Blood Cells 4.42 10^6/uL (4.5-5.90); White Blood Cell 15.1 10^3/uL (4.4-10.8)
[2020-03-02 07:46] LABS: Albumin 2.2 g/dL (3.4-5.0); BUN/Creatinine Ratio 11.1; Potassium 3.8 mmol/L (3.5-5.1)
[2020-03-02 08:00] LABS: Bilirubin, Total 0.4 mg/dL (0.2-1.0); Total Protein 6.1 g/dL (6.4-8.2)
[2020-03-02 09:00] VITALS: BP 142/87
[2020-03-02] MEDS: SEVELAMER 800 MG TAB PO SCH ×3 (09:01→17:52)
[2020-03-02] MEDS: CARVEDILOL 12.5 MG TAB PO SCH ×2 (09:23→17:52)
[2020-03-02] MEDS: FUROSEMIDE 20 MG/2 ML VIAL IV SCH (11:14)
[2020-03-02] MEDS: PANTOPRAZOLE 40 MG/10 ML VIAL INJ IV SCH ×2 (11:14→22:57)
[2020-03-02] MEDS: DOCUSATE SOD 100 MG CAP PO SCH (11:15)
[2020-03-02] MEDS: CEFTRIAXONE SODIUM 2 GM in D5W 5% 50 ML IV SCH (11:15)
[2020-03-02] MEDS: SACUBITRIL-VALSARTAN 24mg/26mg TAB PO SCH ×2 (11:15→22:58)
[2020-03-02 13:00] VITALS: BP 135/84
--- NOTE | 2020-03-02 15:11 | NUR ---
Respiratory note: PATIENT ASSESSED FOR PRN MED-NEB TX; TX NOT INDICATED AT THIS TIME PATIENT IS IN NO ACUTE RESPIRATORY DISTRESS AND DENIES NEED. PATIENT INSTRUCTED TO CALL FOR RT IF HE FEELS THE NEED FOR TX AT A LATER TIME. SPO2 97% R/A
--- NOTE | 2020-03-02 16:56 | NUR ---
Dr Lovell at bedside. Called attention to the patients swollen right arm with the DVT. No new orders placed.
[2020-03-02 17:11] VITALS: BP 166/100
--- NOTE | 2020-03-02 17:26 | NUR ---
MD Dr Lovell called and told me to cancel the social secretary consult to have the patient transferred to [place].
[2020-03-02] MEDS: hydrALAZINE HCL 20 MG/ML VL IV PRN ×2 (17:55→22:59)
--- NOTE | 2020-03-02 20:22 | NUR ---
RT NOTE PT WAS SEEN BY RT FOR PRN HHN ASSESSMENT. PT IS AWAKE AN ALERT AND APPEARS TO BRIAN COMFORTABLE AT THIS TIME. HR 84, RR 16, BS CTA, POX 94% ON ROM AIR. NO SOB OR DISTRESS NOTED. NO PRN TX INDICATED AT THIS TIME. SITTER AT BEDSIDE AWARE TO CALL RT IF PT NEEDS RT ASSISTANCE. CONT ORDERED Addendum: 03/02/20 at 2034 by Gisselle Bonilla RT Amended: Links added.
--- NOTE | 2020-03-02 21:40 | NUR ---
PT APPEARS RESTLESS AND WRITHING AROUND IN THE BED. PT WITH SEVERAL EPISODES OF DIARRHEA AND C/O ABD PAIN. PAGED DR FATIMA AND NEW ORDERS RECEIVED AT THIS TIME. GIVE ZOFRAN 4MG IVP Q4HRS PRN FOR N/V, ATIVAN 0.5MG PO Q6HRS PRN FOR ANXIETY /AGITATION, AND SEND STOOL FOR CDIFF.
[2020-03-02] MEDS ORDERED: ONDANSETRON HCL 4 MG/2 ML VIAL IV PRN (21:45)
[2020-03-02 22:00] VITALS: BP 165/92
--- NOTE | 2020-03-02 22:45 | NUR ---
STOOL SENT FOR CDIFF TO LAB NOW.
[2020-03-02] MEDS: LORazepam 0.5 MG TAB PO PRN (22:58)
[2020-03-03 05:00] VITALS: BP 142/88
--- NOTE | 2020-03-03 05:00 | NUR ---
PT WITH SEVERAL LOOSE STOOLS THROUGH THE NIGHT.
[2020-03-03] MEDS ORDERED: SODIUM CHL 0.9% 1000 ML BAG XX ONE (07:00)
--- NOTE | 2020-03-03 07:00 | NUR ---
Opening Shift Note Received report on the patient. Awake lying in bed. Patient does not show any signs of distress at this time. Discussed the plan of care with the patient. Bed in lowest position, side rails up x2, and the call light is within reach. Will continue to monitor.
--- NOTE | 2020-03-03 07:19 | NUR ---
Respiratory note: HR 91, RR 16, SPO2 95% ON RA, BS CLEAR. PRN MED NEB TX NOT INDICATED AT THIS TIME. NO SIGNS OR SYMPTOMS OF RESPIRATORY DISTRESS NOTED AT THIS TIME.PT INFORMED TO HIT CALL BUTTON IF FEELING SOB OR WHEEZING
[2020-03-03 07:21] LABS: Albumin 2.4 g/dL (3.4-5.0); Magnesium 3.4 mg/dL (1.6-2.6); Potassium 4.2 mmol/L (3.5-5.1)
[2020-03-03 07:26] LABS: BUN/Creatinine Ratio 11.3; Bilirubin, Total 0.5 mg/dL (0.2-1.0); Total Protein 6.3 g/dL (6.4-8.2)
[2020-03-03 07:38] LABS: Basophils # (auto) 0.1 10 ^3/uL (0-0.2); Basophils % (auto) 0.6 % (0.0-2.0); Eosinophils # (auto) 0.3 10 ^3/uL (0-0.8); Eosinophils % (auto) 2.2 % (0.0-7.0); Hematocrit 42.2 % (41.0-53.0); Hemoglobin 13.8 g/dL (13.5-17.5); Lymphocytes # (auto) 1.3 10 ^3/uL (0.4-5.4); Lymphocytes % (auto) 10.2 % (10.0-50.0); Mean Corpuscular Hemoglobin 31.1 pg (28.0-32.0); Mean Corpuscular Hgb Conc. 32.6 g/dL (32.0-36.0); Mean Corpuscular Volume 95.4 fL (80.0-100.0); Monocytes # (auto) 1.1 10 ^3/uL (0-1.3); Monocytes % (auto) 8.1 % (0.0-12.0); Neutrophils # (auto) 10.4 10 ^3/uL (1.6-8.6); Neutrophils % (auto) 78.9 % (37.0-80.0); Nucleated Red Blood Cells % 0.1 %; Platelet Count (auto) 430 10^3/uL (140-450); Red Blood Cells 4.43 10^6/uL (4.5-5.90); Red Cell Distribution Width 14.3 % (11.8-14.3); White Blood Cell 13.2 10^3/uL (4.4-10.8)
[2020-03-03 09:00] VITALS: BP 161/82
[2020-03-03 13:30] VITALS: BP 166/99
[2020-03-03] MEDS: CARVEDILOL 12.5 MG TAB PO SCH ×2 (14:28→18:35)
[2020-03-03] MEDS: SEVELAMER 800 MG TAB PO SCH ×3 (14:31→18:36)
[2020-03-03] MEDS: FUROSEMIDE 20 MG/2 ML VIAL IV SCH (14:31)
[2020-03-03] MEDS: PANTOPRAZOLE 40 MG/10 ML VIAL INJ IV SCH ×2 (14:31→22:27)
[2020-03-03] MEDS: SACUBITRIL-VALSARTAN 24mg/26mg TAB PO SCH ×2 (14:32→22:27)
[2020-03-03] MEDS: DOCUSATE SOD 100 MG CAP PO SCH (14:32)
[2020-03-03] MEDS: CEFTRIAXONE SODIUM 2 GM in D5W 5% 50 ML IV SCH (14:32)
[2020-03-03] MEDS: LORazepam 0.5 MG TAB PO PRN (22:35)
--- NOTE | 2020-03-04 06:50 | NUR ---
DIALYSIS NURSE AT BEDSIDE
[2020-03-04] MEDS ORDERED: SODIUM CHL 0.9% 1000 ML BAG XX ONE (07:00)
--- NOTE | 2020-03-04 07:00 | NUR ---
Opening Shift Note Received report on the patient. Awake lying in bed. Patient shows no signs of distress at this time. Discussed the plan of care with the patient. Bed in lowest position, side rails up x2, and the call light is within reach. Will continue to monitor.
--- NOTE | 2020-03-04 07:15 | NUR ---
CLOSING NOTE- NOC SHIFT ENDORSED PATIENT CARE TO DAY SHIFT RN PATIENT IS IN BED DIALYSIS PER MD ORDERS AT THIS TIME. NO S/SX OF DISTRESS, SOB OR PAIN.
[2020-03-04] MEDS ORDERED: IOHEXOL 350 MG/ML 100ML IJ ONE ×2 (07:41→12:19)
[2020-03-04] MEDS ORDERED: LIDOCAINE 2%HCL (LOCAL ANESTH.) INJ 20ML MDV ONE ×4 (07:41→13:54)
--- NOTE | 2020-03-04 08:44 | NUR ---
Dialysis Dialysis was unsuccessful because the cath was not functioning. Dialysis nurse notified Dr. Jaramillo.
[2020-03-04 09:00] VITALS: BP 174/99
[2020-03-04] MEDS: CARVEDILOL 12.5 MG TAB PO SCH ×2 (09:06→19:22)
[2020-03-04] MEDS: FUROSEMIDE 20 MG/2 ML VIAL IV SCH (09:07)
[2020-03-04] MEDS: SEVELAMER 800 MG TAB PO SCH ×3 (09:07→19:19)
[2020-03-04] MEDS: DOCUSATE SOD 100 MG CAP PO SCH (10:00)
[2020-03-04] MEDS: PANTOPRAZOLE 40 MG/10 ML VIAL INJ IV SCH ×2 (10:40→21:59)
[2020-03-04] MEDS: CEFTRIAXONE SODIUM 2 GM in D5W 5% 50 ML IV SCH (10:40)
[2020-03-04] MEDS: SACUBITRIL-VALSARTAN 24mg/26mg TAB PO SCH ×2 (10:41→21:59)
[2020-03-04] MEDS ORDERED: fentaNYL CITRATE 100 MCG/2 ML VL ONE (12:29)
[2020-03-04] MEDS ORDERED: MIDAZOLAM HCL 1MG/1ML-2 ML VIAL ONE (12:29)
[2020-03-04] MEDS ORDERED: ANGIOMAX 250 MG VIAL IV ONE (12:29)
[2020-03-04] MEDS ORDERED: VERAPAMIL 2.5MG/ML INJ 2ML VIAL IV ONE (12:29)
[2020-03-04] MEDS ORDERED: SODIUM CHL 0.9% 0 ML ONE (12:30)
[2020-03-04] MEDS ORDERED: HEPARIN SODIUM (PORCINE) 5000 UNITS/ML 1ML VIAL ONE ×2 (12:30→13:32)
[2020-03-04] MEDS ORDERED: IODIXANOL 320MG/ML 100ML BTL IV ONE (12:35)
--- NOTE | 2020-03-04 14:17 | NUR ---
EEG EEG is rescheduled for tomorrow because the patient is still in quality assurance lab technician for left heart cath and tunneled IJ.
--- NOTE | 2020-03-04 15:00 | NUR ---
HOLD P.T. TODAY. PT WENT DOWN FOR PROCEDURE.
[2020-03-04] MEDS ORDERED: MORPHINE SULF INJ 2 MG/ML SYRINGE 1ML IV PRN (15:15)
--- NOTE | 2020-03-04 15:54 | NUR ---
Nutrition Followup Notes Pt wt is 91.5 kg Pt was not on the floor d/t medical procedure when rounded this morning. Pt is on a regular diet, with a poor appetite aeb ave 22% PO intake over 6 meals in two days per RN doc. Pt with no noted distress or complaints per RN doc. Will continue to monitor PO status, skin status, pertinent labs and weight trends. Will f/u in 3 to 5 days. Est energy needs: 5011-9739 kcals (17-20 kcal/kgBW) Est protein needs: 60-75 gms/day (0.6-0.75 gm/kgBW) d/t elev RFTs, low GFR Will continue to monitor and reassess prn. LABS: BUN 118 H, CR 10.4 H, GFR 6 L ( stg 5), TP 6.3 L, ALB 2.4 L, AST 115 H GI: BM noted on 03/03/20 per art education professor. BS: 10 high risk, multiple DTIs. Please refer to wound assessment report for full details. PES: Problem 1) Increased nutrient needs r/t pt with 0% PO intake aeb pt sedated, intubated, on ventilation, NPO 2) Obesity r/t energy intake in excess of energy needs aeb 147% IBW an BMI of 33.6 kg/m2 3) Altered nutrition related lab values r/t current medical condition aeb hyponatremia, hypochloremia, elev RFTs, Elev LFTs, low GFR, elev Troponin, hypoproteinemia, severe hypoalbuminemia Comments 1) Continue to closely monitor pt NPO status 2) If pt remains NPO for the next 48 hours, consider EN nutrition support of Jevity 1.2 @ 60 ml/hr goal rate 3) Gradually advance pt to oral Renal Specific diet when medically feasible and as tolerated 4) Refer pt to a RD for nutrition education upon D/C 5) Continue current plan of care
--- NOTE | 2020-03-04 16:25 | NUR ---
D/C Planning Placed followed up called to Shraddha with [facility] at 13:00 and left a message regarding Chair time. Will follow up in the morning.
[2020-03-04 17:00] VITALS: BP 164/100
--- NOTE | 2020-03-04 19:20 | NUR ---
OPENING NOTE- NOC SHIFT PATIENT IS ALERT AND ORIENTED SITTING UP IN BED. BED IS LOCKED AT LOWEST POSITION, BED RAILS UP X2. BEDSIDE TABLE WITHIN REACH, CALL LIGHT WITHIN REACH. DISCUSSED POC WITH PATIENT AND INSTRUCTED PATIENT TO CALL PRN; PATIENT VERBALIZED UNDERSTANDING. WILL CONTINUE TO MONITOR Q1H AND PRN. NURSE TURBINE SUBASSEMBLER AT BEDSIDE FOR SAFETY PRECAUTIONS.
[2020-03-04] MEDS: LORazepam 0.5 MG TAB PO PRN (21:59)
[2020-03-04 22:00] VITALS: BP 183/108
--- NOTE | 2020-03-04 22:35 | NUR ---
BLOOD PRESSURE REASSESSMENT 142/76 AFTER SCHEDULED MEDICATION.
[2020-03-05 05:00] VITALS: BP 147/80
--- NOTE | 2020-03-05 06:40 | NUR ---
DIALYSIS NURSE AT BEDSIDE PROVIDED NURSE WITH TWO 1000ML NS BAGS AND HEPARIN PER MD ORDERS ON eMAR.
--- NOTE | 2020-03-05 06:58 | NUR ---
CLOSING NOTE- NOC SHIFT PATIENT IS IN BED. DIALYSIS NURSE AT BEDSIDE. NURSE DINING ROOM HELPER AT BEDSIDE FOR SAFETY PRECAUTIONS. NO S/SX OF DISTRESS OR SOB; PATIENT DENIES PAIN AT THIS TIME. WILL ENDORSE CARE TO DAY SHIFT RN.
--- NOTE | 2020-03-05 07:30 | NUR ---
Opening Shift Note Assumed care of patient, alert and oriented x4. No S/S of distress/SOB or pain. Bed is low, locked with 2x side rails up. Call light is within reach. Dialysis nurse is currently at bedside for scheduled hemodialysis. Instructed on POC and to call for assist PRN, will continue to monitor for changes Q1hr and PRN.
--- NOTE | 2020-03-05 09:39 | NUR ---
Per Ildefonso at [facility]-patient will be fitted for life vest tomorrow 03/06/20.
[2020-03-05 09:54] LABS: Basophils # (auto) 0.1 10 ^3/uL (0-0.2); Basophils % (auto) 0.7 % (0.0-2.0); Eosinophils # (auto) 0.3 10 ^3/uL (0-0.8); Hematocrit 33.8 % (41.0-53.0); Hemoglobin 11.8 g/dL (13.5-17.5); Lymphocytes % (auto) 9.7 % (10.0-50.0); Mean Corpuscular Hemoglobin 31.8 pg (28.0-32.0); Monocytes # (auto) 1.1 10 ^3/uL (0-1.3); Monocytes % (auto) 10.4 % (0.0-12.0); Neutrophils # (auto) 7.9 10 ^3/uL (1.6-8.6); Neutrophils % (auto) 76.2 % (37.0-80.0); Platelet Count (auto) 324 10^3/uL (140-450); Red Blood Cells 3.71 10^6/uL (4.5-5.90); Red Cell Distribution Width 13.8 % (11.8-14.3); White Blood Cell 10.3 10^3/uL (4.4-10.8)
[2020-03-05] MEDS: DOCUSATE SOD 100 MG CAP PO SCH (10:00)
[2020-03-05 10:20] LABS: BUN/Creatinine Ratio 9.3; Potassium 3.3 mmol/L (3.5-5.1)
[2020-03-05] MEDS: PANTOPRAZOLE 40 MG/10 ML VIAL INJ IV SCH ×2 (11:49→22:44)
[2020-03-05] MEDS: SACUBITRIL-VALSARTAN 24mg/26mg TAB PO SCH (11:50)
[2020-03-05] MEDS: FUROSEMIDE 20 MG/2 ML VIAL IV SCH (11:50)
[2020-03-05] MEDS: SEVELAMER 800 MG TAB PO SCH ×3 (11:50→17:27)
[2020-03-05] MEDS: CEFTRIAXONE SODIUM 2 GM in D5W 5% 50 ML IV SCH (11:51)
[2020-03-05] MEDS: CARVEDILOL 12.5 MG TAB PO SCH (11:51)
[2020-03-05 14:00] VITALS: BP 138/77
--- NOTE | 2020-03-05 15:44 | NUR ---
D/C Planning Received follow up call from Shraddha with [facility] dialysis advising me patient Chair-Time will be Tuesdays, and Saturdays at 16:00 and patient will have to arrived at 15:00 on first visit for intake. [facility] address: [address] [facility] [address] Ph: ext [phone]).
--- NOTE | 2020-03-05 16:18 | NUR ---
Per RUBI Fregoso-patient's ejection fraction after LHC is 60%-does not qualify for life vest at this time.
--- NOTE | 2020-03-05 16:48 | NUR ---
Nas Lovell is at bedside updating patient on POC. Patient to be discharged tomorrow. New orders received/carried out. (see orders)
--- NOTE | 2020-03-05 18:00 | NUR ---
Baker catheter dc'd Order to discontinue baker catheter. Baker dc'd with clean technique following deflation of balloon. Patient tolerated well with no complaints of pain. Provided patient with a urinal. Will continue to monitor.
[2020-03-05 22:00] VITALS: BP 155/97
[2020-03-05] MEDS: METOPROLOL TARTRATE 50 MG TAB PO SCH (22:45)
[2020-03-05] MEDS: LORazepam 0.5 MG TAB PO PRN (22:45)
[2020-03-06 05:00] VITALS: BP 147/80
--- NOTE | 2020-03-06 07:00 | NUR ---
CLOSING NOTE- NOC SHIFT PATIENT COMFORTABLE IN BED. NO S/SX OF DISTRESS, SOB OR PAIN. PATIENT STATES TO BE EXCITED TO GO HOME TODAY. NURSE SUPERVISOR STITCHING DEPARTMENT AT BEDSIDE. WILL ENDORSE PATIENT CARE TO DAY SHIFT RN.
[2020-03-06 07:11] LABS: Basophils # (auto) 0.1 10 ^3/uL (0-0.2); Basophils % (auto) 0.6 % (0.0-2.0); Eosinophils # (auto) 0.4 10 ^3/uL (0-0.8); Eosinophils % (auto) 3.5 % (0.0-7.0); Hematocrit 32.3 % (41.0-53.0); Hemoglobin 11.2 g/dL (13.5-17.5); Lymphocytes # (auto) 1.4 10 ^3/uL (0.4-5.4); Lymphocytes % (auto) 13.6 % (10.0-50.0); Mean Corpuscular Hemoglobin 31.8 pg (28.0-32.0); Mean Corpuscular Hgb Conc. 34.8 g/dL (32.0-36.0); Mean Corpuscular Volume 91.4 fL (80.0-100.0); Monocytes # (auto) 1.1 10 ^3/uL (0-1.3); Monocytes % (auto) 10.5 % (0.0-12.0); Neutrophils # (auto) 7.6 10 ^3/uL (1.6-8.6); Neutrophils % (auto) 71.8 % (37.0-80.0); Platelet Count (auto) 339 10^3/uL (140-450); Red Blood Cells 3.54 10^6/uL (4.5-5.90); Red Cell Distribution Width 13.4 % (11.8-14.3); White Blood Cell 10.6 10^3/uL (4.4-10.8)
[2020-03-06 07:25] LABS: Albumin 2.8 g/dL (3.4-5.0); Calcium 8.5 mg/dL (8.5-10.1); Magnesium 2.6 mg/dL (1.6-2.6); Potassium 3.4 mmol/L (3.5-5.1)
[2020-03-06 07:28] LABS: BUN/Creatinine Ratio 9.8; Bilirubin, Total 0.5 mg/dL (0.2-1.0); Total Protein 6.7 g/dL (6.4-8.2)
--- NOTE | 2020-03-06 07:30 | NUR ---
Opening Shift Note Assumed care of patient, awake and alert. No S/S of distress/SOB or pain. Instructed on POC and to call for assist PRN, will continue to monitor for changes Q1hr and PRN. Fall precautions in place per safety protocol.
[2020-03-06] MEDS: SEVELAMER 800 MG TAB PO SCH ×3 (08:35→18:00)
[2020-03-06 09:00] VITALS: BP 155/117
[2020-03-06] MEDS: PANTOPRAZOLE 40 MG/10 ML VIAL INJ IV SCH (09:56)
[2020-03-06] MEDS: CEFTRIAXONE SODIUM 2 GM in D5W 5% 50 ML IV SCH (09:56)
[2020-03-06] MEDS: METOPROLOL TARTRATE 50 MG TAB PO SCH (09:57)
[2020-03-06] MEDS: DOCUSATE SOD 100 MG CAP PO SCH (09:57)
[2020-03-06 13:00] VITALS: BP 139/94
[2020-03-06 17:32] VITALS: BP 139/94
--- NOTE | 2020-03-06 18:15 | NUR ---
Discharge instructions given as ordered. Encourage to follow up with PMD as instructed. All questions and concerns addressed. Patient verbalized understanding. Medication reconciliation form completed and copy given to patient. IV removed with catheter intact, pressure dressing applied. Telemetry unit returned to ICU. Patient taken to vehicle via wheelchair with all personal belongings, accompanied by staff. No distress noted at time of departure.
== END 2020-03-06 18:15 | disposition home or self-care (01) | DRG 870 ==
LOC: EDBD 17:23 → ER 17:23 → TELE 17:24 → ICU WEST 23:04 → DOU IN ICU 02-29 10:06 → TELE-EAST 03-01 15:11
PROVIDERS: ADMIT Hospitalist; ATTEND Internal Medicine
PROC: 5A1955Z Respiratory Ventilation, Greater than 96 Consecutive Hours (ICD-10-PCS; 2020-02-20)
PROC: 0BH17EZ Insertion of Endotracheal Airway into Trachea, Via Natural or Artificial Opening (ICD-10-PCS; 2020-02-20)
PROC: B246ZZ4 Ultrasonography of Right and Left Heart, Transesophageal (ICD-10-PCS; 2020-02-23)
PROC: 0JH63XZ Insertion of Tunneled Vascular Access Device into Chest Subcutaneous Tissue and Fascia, Percutaneous Approach (ICD-10-PCS; 2020-02-24)
PROC: 02H633Z Insertion of Infusion Device into Right Atrium, Percutaneous Approach (ICD-10-PCS; 2020-02-24)
PROC: B548ZZA Ultrasonography of Superior Vena Cava, Guidance (ICD-10-PCS; 2020-02-24)
PROC: 5A1D70Z Performance of Urinary Filtration, Intermittent, Less than 6 Hours Per Day (ICD-10-PCS; 2020-02-25)
PROC: 5A1D70Z Performance of Urinary Filtration, Intermittent, Less than 6 Hours Per Day (ICD-10-PCS; 2020-02-27)
PROC: 5A1D70Z Performance of Urinary Filtration, Intermittent, Less than 6 Hours Per Day (ICD-10-PCS; 2020-02-28)
PROC: 5A1D70Z Performance of Urinary Filtration, Intermittent, Less than 6 Hours Per Day (ICD-10-PCS; 2020-03-01)
PROC: 5A1D70Z Performance of Urinary Filtration, Intermittent, Less than 6 Hours Per Day (ICD-10-PCS; 2020-03-03)
PROC: 4A023N7 Measurement of Cardiac Sampling and Pressure, Left Heart, Percutaneous Approach (ICD-10-PCS; principal; 2020-03-04)
PROC: B2111ZZ Fluoroscopy of Multiple Coronary Arteries using Low Osmolar Contrast (ICD-10-PCS; 2020-03-04)
PROC: B2151ZZ Fluoroscopy of Left Heart using Low Osmolar Contrast (ICD-10-PCS; 2020-03-04)
PROC: 5A1D70Z Performance of Urinary Filtration, Intermittent, Less than 6 Hours Per Day (ICD-10-PCS; 2020-03-04)
PROC: 5A1D70Z Performance of Urinary Filtration, Intermittent, Less than 6 Hours Per Day (ICD-10-PCS; 2020-03-05)
DX: A41.9 Sepsis, unspecified organism (principal); I50.23 Acute on chronic systolic (congestive) heart failure; N18.6 End stage renal disease; G92 Toxic encephalopathy; R65.21 Severe sepsis with septic shock; J96.01 Acute respiratory failure with hypoxia; I21.A1 Myocardial infarction type 2; I13.2 Hypertensive heart and chronic kidney disease with heart failure and with stage 5 chronic kidney disease, or end stage renal disease; N17.9 Acute kidney failure, unspecified; M62.82 Rhabdomyolysis; G93.1 Anoxic brain damage, not elsewhere classified; J44.0 Chronic obstructive pulmonary disease with (acute) lower respiratory infection; E87.5 Hyperkalemia; T50.901A Poisoning by unspecified drugs, medicaments and biological substances, accidental (unintentional), initial encounter; F15.10 Other stimulant abuse, uncomplicated; F10.10 Alcohol abuse, uncomplicated; F17.210 Nicotine dependence, cigarettes, uncomplicated; N14.4 Toxic nephropathy, not elsewhere classified; G89.29 Other chronic pain; M54.5 Low back pain; E83.39 Other disorders of phosphorus metabolism; Z90.49 Acquired absence of other specified parts of digestive tract; Z79.899 Other long term (current) drug therapy
CPT/HCPCS: 31500; 36415; 36600; 51702; 70450; 71045; 71250; 72125; 74176; 76705; 76942; 78582; 80048; 80053; 80074; 80076; 80202; 80307; 80320; 80329; 81001; 82040; 82140; 82270; 82550; 82570; 82607; 82728; 82746; 82805; 82962; 83605; 83615; 83735; 83880; 84100; 84133; 84156; 84300; 84443; 84478; 84484; 85007; 85025; 85027; 85379; 85610; 85730; 86141; 86703; 86704; 86706; 86708; 86803; 86850; 86900; 86901; 87040; 87070; 87077; 87081; 87186; 87205; 87340; 87493; 87804; 87880; 90935; 93005; 93306; 93312; 93926; 93970; 93971; 94002; 94003; 94640; 95819; 96374; 97110; 97116; 97163; 97530; 99152; 99153; 99291; C9113; G0378; J0330; J0610; J0696; J1642; J1815; J2250; J2405; J2543; J2704; J7060; Q9967